=== PATIENT | female | born 1955 | race Caucasian/White ===

== ENCOUNTER 2020-10-23 07:40 | Emergency (ER) | payer OTHER ==
--- OUTSIDE RECORDS SUMMARY | 2020-10-23 07:42 | XMS REPORT | Continuity of Care Document ---
:1955 Author Organization [facility] t Address [address] [place] [address] Care Team Providers Name Role Phone Radiology Attending Clinician Unavailable Problems This patient has no known problems. Allergies, Adverse Reactions, Alerts This patient has no known allergies or adverse reactions. Medications This patient has no known medications. Procedures This patient has no known procedures. Encounters Start End Encounter Admission Attending Care Care Encounter Source Date/Time Date/Time Type Type Clinicians Facility Department ID 2019-12-06 2019-12-06 [facility] Radiology [facility] [id number] 13:42:00 23:59:00 Encounter [place] [id number] [place] [id number] [place] [id number] 800 2019-12-06 2019-12-06 [facility] Radiology [facility] [id number] 13:40:00 13:41:00 Encounter [place] [id number] [place] [id number] [place] [id number] Results This patient has no known results.
[2020-10-23 08:10] LABS: Absolute Lymphocytes (CBC) 1.3 K/uL (0.7-4.9); Basophils % 0.3 % (0-1.3); Lymphocytes % 7.8 % (15.3-44.8); MPV 7.6 fL (7.6-11.3); RBC Red Blood Cell Count 5.43 M/uL (3.86-4.86)
[2020-10-23 08:15] LABS: Protime INR 0.95
[2020-10-23] MEDS ORDERED: MORPHINE 4 MG/ML SYR ONE (08:17)
[2020-10-23] MEDS ORDERED: ONDANSETRON 4 MG/2 ML VIAL ONE (08:18)
[2020-10-23 08:34] LABS: ALT/SGPT 35 U/L (12-78); AST/SGOT 37 U/L (15-37); Albumin 4.1 g/dL (3.4-5.0); Alkaline Phosphatase 57 U/L (45-117); BUN Blood Urea Nitrogen 12 mg/dL (7-18); Bicarbonate 25 mmol/L (21-32); Bilirubin Direct 0.1 mg/dL (0-0.2); Bilirubin Total 0.6 mg/dL (0.2-1.0); Glucose Level 142 mg/dL (74-106); Magnesium 2.2 mg/dL (1.8-2.4); NT PRO-BNP 185 pg/mL (<125); Potassium 3.5 mmol/L (3.5-5.1); Protein, Total 8.3 g/dL (6.4-8.2); Sodium Level 138 mmol/L (136-145); Troponin (Emerg Dept Use Only) < 0.02 ng/mL (0.0-0.045)
--- NOTE | 2020-10-23 09:19 | RAD REPORT ---
EXAM DESCRIPTION: CT - Abdomen Pelvis W Contrast - 10/23/2020 8:51 am CLINICAL HISTORY: ABD PAIN COMPARISON: No comparisons TECHNIQUE: Biphasic, helical CT imaging of the abdomen and pelvis was performed following 100 ml non -ionic IV contrast. No oral contrast given. All CT scans are performed using dose optimization technique as appropriate and may include automated exposure control or mA/KV adjustment according to patient size. FINDINGS: No suspicious findings in the lung bases. The liver, spleen, and pancreas show no suspicious findings. Gallbladder and biliary tree are also wi thout suspicious finding. Symmetric renal function is seen with no hydronephrosis or suspicious renal mass. No pyelonephritis o r acute parenchymal process. No bladder abnormalities. No adrenal abnormalities. Uterus and ovaries s how no suspicious findings. Patient has prominent veins along the left side of the uterus with a larg e but patent left gonadal vein. Tortuous dilated but patent veins are seen between the left kidney an d aorta. No stomach or small bowel abnormality. Moderate stool volume is present in the cecum and ascending co apollo. Several right antral wall thickening is seen in the left-side transverse colon to the splenic fl exure. There is stranding and edema in the adjacent fat. Patient has very minimal diverticulosis in t he sigmoid colon and none seen in the area of the involved colon. Left-side: Has very little stool co ntent. No suspicious finding in the distal rectum or anus. CT sensitivity in the anus and perineum is limited. Appendix is normal. No free air, free fluid or pneumatosis. No other area of inflammatory stranding seen. No bulky lym phadenopathy or mass. Patient has a very small 10 millimeter umbilical hernia. The anterior abdominal wall shows convex bowing extending to near the skin surface as a normal variant. Disc and bone degenerative changes are present. This is most prominent at the thoracolumbar junction region and the L5-S1 level. L5 pars defects are present with grade 1 spondylolisthesis. IMPRESSION: Circumferential wall thickening of a 10 centimeter long segment of the left side transve rse colon. Patient has minimal sigmoid diverticulosis and no diverticulosis in the involved portion of the colon. Finding is most likely a nonspecific colitis. Colon malignancy cannot be excluded. Follow-up colonosc opy after medical management of the acute colon process would be recommended.
--- NOTE | 2020-10-23 10:25 | ER ---
Nurse's Notes [facility] Name: Melisa Daugherty Age: 65 yrs Sex: Female : 1955 Arrival Date: 10/23/2020 Time: 07:43 Bed 6 Private MD: BONITA SHANKAR Diagnosis: Left sided colitis;Gastrointestinal hemorrhage, unspecified;Hemorrhoids Presentation: 10/23 07:55 Chief complaint: Patient states: "At two this morning I was really constipated, and I ss have a hernia. I'm afraid I may have strained too hard because I have blood in my stool and my stomach hurts so bad." Pt c/o pain under umbilicus. Coronavirus screen: Client denies travel out of the [place] in the last 14 days. Ebola Screen: Patient denies exposure to infectious person. Patient denies travel to an Ebola-affected area in the 21 days before illness onset. Initial Sepsis Screen: Does the patient meet any 2 criteria? No. Patient's initial sepsis screen is negative. Does the patient have a suspected source of infection? No. Patient's initial sepsis screen is negative. Risk Assessment: Do you want to hurt yourself or someone else? Patient reports no desire to harm self or others. Onset of symptoms was October 23, 2020. 07:55 Method Of Arrival: Ambulatory ss 07:55 Acuity: MACEY 3 ss Historical: - Allergies: 08:00 Codeine; ss - PMHx: 08:00 High Cholesterol; ss - PSHx: 08:00 Right Mastectomy; knee repair; ss - Immunization history:: Adult Immunizations unknown. - Social history:: Smoking status: Patient denies any tobacco usage or history of. Screenin:55 Abuse screen: Denies threats or abuse. Nutritional screening: No deficits noted. em Tuberculosis screening: No symptoms or risk factors identified. Fall Risk None identified. Assessment: 09:00 Reassessment: Patient appears in no apparent distress at this time. Patient and/or em family updated on plan of care and expected duration. Pain level reassessed. Patient is alert, oriented x 3, equal unlabored respirations, skin warm/dry/pink. 10:00 Reassessment: Patient appears in no apparent distress at this time. Patient and/or em family updated on plan of care and expected duration. Pain level reassessed. Patient is alert, oriented x 3, equal unlabored respirations, skin warm/dry/pink. rates pain 3/10 Patient states feeling better. Vital Signs: 07:55 BP 187 / 122; Pulse 97; Resp 19; Temp 97.0(TE); Pulse Ox 98% on R/A; Weight 77.11 kg; ss Height 5 ft. 2 in. (157.48 cm); Pain 9/10; 08:00 BP 192 / 109; Pulse 90; Resp 18; Pulse Ox 98% on R/A; Pain 8/10; em 09:00 BP 194 / 106; Pulse 89; Resp 16; Pulse Ox 96% on R/A; em 10:11 BP 181 / 98; Pulse 88; Resp 14; Pulse Ox 96% on R/A; Pain 3/10; em 07:55 Body Mass Index 31.09 (77.11 kg, 157.48 cm) ED Course: 07:43 Patient arrived in ED. mr 07:43 BONITA SHANKAR is Private Physician. mr 07:47 Trey Eubanks MD is Attending Physician. tw4 07:49 Jerry Lombardo, RN is Primary Nurse. em 07:55 Patient has correct armband on for positive identification. Placed in gown. Bed in low em position. Call light in reach. Side rails up X2. Pulse ox on. NIBP on. 07:55 Initial lab(s) drawn, by az, sent to lab. Inserted saline lock: 20 gauge in right em forearm, using aseptic technique. Blood collected. 07:57 Triage completed. ss 08:00 Arm band placed on right wrist. 08:52 CT Abd/Pelvis - IV Contrast Only In Process Unspecified. EDMS 09:10 EKG done, by ED staff, reviewed by Trey Eubanks MD. dh3 10:24 BONITA SHANKAR is Referral Physician. tw4 10:26 No provider procedures requiring assistance completed. IV discontinued, intact, ss bleeding controlled, No redness/swelling at site. Pressure dressing applied. Administered Medications: 08:02 Drug: Zofran (Ondansetron) 4 mg Route: IVP; Site: right forearm; em 08:20 Follow up: Response: No adverse reaction em 08:04 Drug: morphine 4 mg Route: IVP; Site: right forearm; em 08:20 Follow up: Response: No adverse reaction; Marked relief of symptoms; Pain is decreased em 09:25 Drug: fentaNYL (PF) 25 mcg Route: IVP; Site: right forearm; em 10:16 Follow up: Response: No adverse reaction; Marked relief of symptoms; Pain is decreased; em RASS: Alert and Calm (0) 10:16 Drug: hydrALAZINE 20 mg Route: IV; Rate: bolus; Site: right forearm; em Outcome: 10:25 Discharge ordered by MD. jewell 10:26 Discharged to home ambulatory. 10:26 Condition: good 10:42 Discharge instructions given to patient, Instructed on discharge instructions, follow ss up and referral plans. medication usage, Demonstrated understanding of instructions, follow-up care, medications, Prescriptions given X 2, Dr. Eubanks will call in pain medication 10:43 Patient left the ED. Signatures: Dispatcher [employer] Kamilah Simms Edgar, RN RN Janki Rocha RN RN Riya [facility] Trey Eubanks MD MD tw4
--- NOTE | 2020-10-23 10:25 | EDPHYS ---
Physician Documentation [facility] Name: Melisa Daugherty Age: 65 yrs Sex: Female : 1955 Arrival Date: 10/23/2020 Time: 07:43 Bed 6 Private MD: BONITA SHANKAR ED Physician Trey Eubanks HPI: 10/23 08:01 This 65 yrs old Female presents to ER via Ambulatory with complaints of tw4 Rectal Bleeding. 08:01 The patient presents to the emergency department with bleeding from the rectum/anus. tw4 Onset: The symptoms/episode began/occurred today. Context: the patient has no known special context relating to the rectal area complaint(s). Modifying factors: The symptoms are alleviated by cool compress, The symptoms are aggravated by bowel movement. Associate signs and symptoms: The patient has no apparent associated signs or symptoms. The patient has not experienced similar symptoms in the past. Historical: - Allergies: 08:00 Codeine; ss - PMHx: 08:00 High Cholesterol; ss - PSHx: 08:00 Right Mastectomy; knee repair; ss - Immunization history:: Adult Immunizations unknown. - Social history:: Smoking status: Patient denies any tobacco usage or history of. ROS: 08:01 Constitutional: Negative for fever, chills, and weight loss, Eyes: Negative for injury, tw4 pain, redness, and discharge, Cardiovascular: Negative for chest pain, palpitations, and edema, Respiratory: Negative for shortness of breath, cough, wheezing, and pleuritic chest pain, Abdomen/GI: Negative for abdominal pain, nausea, vomiting, diarrhea, and constipation, Back: Negative for injury and pain. 08:01 MS/Extremity: Negative for injury and deformity, Skin: Negative for injury, rash, and discoloration. 08:01 Abdomen/GI: Positive for abdominal pain, rectal pain, rectal bleeding, Negative for nausea and vomiting, nausea, vomiting, and diarrhea, nausea, vomiting, diarrhea, constipation, abdominal cramps, abdominal distension, anorexia, dysphagia, hematemesis. Exam: 08:01 Constitutional: This is a well developed, well nourished patient who is awake, alert, tw4 and in no acute distress. Head/Face: Normocephalic, atraumatic. Chest/axilla: Normal chest wall appearance and motion. Nontender with no deformity. No lesions are appreciated. Cardiovascular: Regular rate and rhythm with a normal S1 and S2. No gallops, murmurs, or rubs. Normal PMI, no JVD. No pulse deficits. Respiratory: Lungs have equal breath sounds bilaterally, clear to auscultation and percussion. No rales, rhonchi or wheezes noted. No increased work of breathing, no retractions or nasal flaring. Back: No spinal tenderness. No costovertebral tenderness. Full range of motion. MS/ Extremity: Pulses equal, no cyanosis. Neurovascular intact. Full, normal range of motion. Neuro: Awake and alert, GCS 15, oriented to person, place, time, and situation. Cranial nerves II-XII grossly intact. Motor strength 5/5 in all extremities. Sensory grossly intact. Cerebellar exam normal. Normal gait. 08:01 Abdomen/GI: Inspection: abdomen appears normal, Bowel sounds: normal, Palpation: moderate abdominal tenderness, in the left lower quadrant. Vital Signs: 07:55 BP 187 / 122; Pulse 97; Resp 19; Temp 97.0(TE); Pulse Ox 98% on R/A; Weight 77.11 kg; ss Height 5 ft. 2 in. (157.48 cm); Pain 9/10; 08:00 BP 192 / 109; Pulse 90; Resp 18; Pulse Ox 98% on R/A; Pain 8/10; em 09:00 BP 194 / 106; Pulse 89; Resp 16; Pulse Ox 96% on R/A; em 10:11 BP 181 / 98; Pulse 88; Resp 14; Pulse Ox 96% on R/A; Pain 3/10; em 07:55 Body Mass Index 31.09 (77.11 kg, 157.48 cm) MDM: 07:47 Patient medically screened. tw4 14:22 Differential diagnosis: hemorrhoids. Data reviewed: vital signs, nurses notes. Data tw4 interpreted: Pulse oximetry: Interpretation: normal. Counseling: I had a detailed discussion with the patient and/or guardian regarding: the historical points, exam findings, and any diagnostic results supporting the discharge/admit diagnosis, lab results, radiology results. Special discussion: I discussed with the patient/guardian in detail that at this point there is no indication for admission to the hospital. It is understood, however, that if the symptoms persist or worsen the patient needs to return immediately for re-evaluation. 10/23 07:49 Order name: Basic Metabolic Panel; Complete Time: 08:43 10/23 08:43 Interpretation: Normal except: GLUC 142; GFR 76. 10/23 07:49 Order name: CBC with Diff 10/23 08:43 Interpretation: Normal except: WBC 16.6; RBC 5.43; HGB 16.3; HCT 50.0; LYM% 7.8; DALE% tw4 87.3; NEUT A 14.5. 10/23 07:49 Order name: LFT's; Complete Time: 08:43 10/23 08:43 Interpretation: Normal except: TP 8.3; GLOB 4.2; A/G 1.0. 10/23 07:49 Order name: Magnesium; Complete Time: 08:43 10/23 08:44 Interpretation: Within normal limits: MG 2.2. 10/23 07:49 Order name: NT PRO-BNP; Complete Time: 08:43 10/23 08:43 Interpretation: Normal except: NT PRO-BNP 185. 10/23 07:49 Order name: PT-INR; Complete Time: 08:43 10/23 08:44 Interpretation: Within normal limits: PT 11.2. 10/23 07:49 Order name: Troponin (emerg Dept Use Only); Complete Time: 08:43 10/23 08:44 Interpretation: Within normal limits: TROPED < 0.02. 10/23 07:49 Order name: EKG; Complete Time: 07:50 10/23 08:03 Order name: CT Abd/Pelvis - IV Contrast Only; Complete Time: 09:40 10/23 10:29 Order name: Manual Differential EDMS 10/23 07:49 Order name: Cardiac monitoring; Complete Time: 08:08 10/23 07:49 Order name: EKG - Nurse/Tech; Complete Time: 09:13 10/23 07:49 Order name: IV Saline Lock; Complete Time: 08:08 10/23 07:49 Order name: Labs collected and sent; Complete Time: 08:08 10/23 07:49 Order name: O2 Per Protocol; Complete Time: 08:08 10/23 07:49 Order name: O2 Sat Monitoring; Complete Time: : tw4 EC:22 Rate is 88 beats/min. Rhythm is regular. QRS [place] is Normal. MO interval is normal. QRS tw4 interval is normal. QT interval is normal. No Q waves. T waves are Normal. No ST changes noted. Clinical impression: Normal ECG. Interpreted by me. Reviewed by me. Administered Medications: 08:02 Drug: Zofran (Ondansetron) 4 mg Route: IVP; Site: right forearm; em 08:20 Follow up: Response: No adverse reaction em 08:04 Drug: morphine 4 mg Route: IVP; Site: right forearm; em 08:20 Follow up: Response: No adverse reaction; Marked relief of symptoms; Pain is decreased em 09:25 Drug: fentaNYL (PF) 25 mcg Route: IVP; Site: right forearm; em 10:16 Follow up: Response: No adverse reaction; Marked relief of symptoms; Pain is decreased; em RASS: Alert and Calm (0) 10:16 Drug: hydrALAZINE 20 mg Route: IV; Rate: bolus; Site: right forearm; em Disposition: 10/23/20 10:25 Discharged to Home. Impression: Left sided colitis, Gastrointestinal hemorrhage, unspecified, Hemorrhoids. - Condition is Stable. - Discharge Instructions: Rectal Bleeding, Hemorrhoids, Lvel-wu-Aiju, Colitis. - Prescriptions for Colace 100 mg Oral Tablet - take 1 tablet by ORAL route every 12 hours; 14 tablet. Flagyl 500 mg Oral Tablet - take 1 tablet by ORAL route every 12 hours for 7 days; 14 tablet. - Work release form, Medication Reconciliation Form, Thank You Letter, Antibiotic Education, Prescription Opioid Use form. - Follow up: OBNITA SHANKAR; When: Upon discharge from the Emergency Department; Reason: Recheck today's complaints, Continuance of care, Re-evaluation by your physician. - Problem is new. - Symptoms have improved. Signatures: Dispatcher [employer] Jerry Santiago, RN RN em Janki Rocha RN RN Trey Eubanks MD MD tw4 Corrections: (The following items were deleted from the chart) 10:26 10:25 10/23/2020 10:25 Discharged to Home. Impression: Left sided colitis. Condition is tw4 Stable. Forms are Medication Reconciliation Form, Thank You Letter, Antibiotic Education, Prescription Opioid Use. Follow up: BONITA SHANKAR; When: Upon discharge from the Emergency Department; Reason: Recheck today's complaints, Continuance of care, Re-evaluation by your physician. Problem is new. Symptoms have improved. tw4 10:43 10:26 10/23/2020 10:25 Discharged to Home. Impression: Left sided colitis; ss Gastrointestinal hemorrhage, unspecified; Hemorrhoids. Condition is Stable. Discharge Instructions: Colitis. Forms are Medication Reconciliation Form, Thank You Letter, Antibiotic Education, Prescription Opioid Use. Follow up: BONITA SHANKAR; When: Upon discharge from the Emergency Department; Reason: Recheck today's complaints, Continuance of care, Re-evaluation by your physician. Problem is new. Symptoms have improved. tw4
[2020-10-23] MEDS ORDERED: HYDRALAZINE HCL 20 MG/ML VIAL ONE (10:28)
[2020-10-23 10:29] LABS: Blood Morphology Comment NOT SEEN (NOT SEEN); Platelet Estimate ADEQ
[2020-10-23 10:48] VITALS: TEMP 97
[2020-10-23 10:50] VITALS: O2SAT 96
[2020-10-23 10:51] VITALS: BP 181/98
== END 2020-10-23 10:43 | disposition home or self-care (01) ==
LOC: ER 07:40
DX: K51.50 Left sided colitis without complications (principal); K64.9 Unspecified hemorrhoids; Z88.5 Allergy status to narcotic agent; Z90.11 Acquired absence of right breast and nipple
CPT/HCPCS: 85025; 80048; 36415; 83735; 85610; 80076; 84484; 83880; 74177; 96375; 96374; 99284; Q9967; J0360; J2405; 93005

== ENCOUNTER 2022-03-19 16:52 | Emergency (ER) | payer OTHER ==
--- OUTSIDE RECORDS SUMMARY | 2022-03-19 16:54 | XMS REPORT | Continuity of Care Document ---
:1955 Author Organization [facility] t Address [address] [place] [address] Care Team Providers Name Role Phone Tyrese SHANKAR Primary Care Physician Unavailable Radiology Attending Clinician Unavailable RADIOLOGY Attending Clinician Unavailable EMIL Admitting Clinician Unavailable Payers Payer Name Policy Type Policy Number Effective Date Expiration Date S yovani MEDICARE PART A [id number] 2008 \T\ B 00:00:00 MEDICA[place] [id number] 2014 00:00:00 Problems This patient has no known problems. Allergies, Adverse Reactions, Alerts Allergy Allergy Status Severity Reaction(s) Onset Inactive Treating Comm ents Source Name Type Date Date Clinician [facility] [address] Medications This patient has no known medications. Procedures This patient has no known procedures. Encounters Start End Encounter Admission Attending Care Care Encounter Source Date/Time Date/Time Type Type Clinicians Facility Department ID 2019-12-06 2019-12-06 [facility] Radiology [facility] [id number] 13:42:00 23:59:00 Encounter [place] [id number] [place] [id number] [place] [id number] 2019-12-06 2019-12-06 Outpatient R RADIOLOGY [facility] [id number] [facility] 13:41:03 13:41:00 ity of [facility] 2019-12-06 2019-12-06 [facility] Radiology [facility] [id number] 13:40:00 13:41:00 Encounter [place] [id number] [place] [id number] [place] [id number] 800 2019-12-06 2019-12-06 Outpatient R RADIOLOGY [facility] [id number] [facility] 00:00:00 00:00:00 [facility] Results This patient has no known results.
[2022-03-19 17:46] LABS: Absolute Lymphocytes (CBC) 2.2 K/uL (0.7-4.9); Hematocrit 43.7 % (36.0-45.0); Lymphocytes % 18.5 % (15.3-44.8); MPV 7.7 fL (7.6-11.3); RBC Red Blood Cell Count 4.86 M/uL (3.86-4.86)
[2022-03-19 17:54] LABS: Potassium 3.8 mmol/L (3.5-5.1)
[2022-03-19 18:14] LABS: Urine Blood Trace-intact (Negative); Urine Glucose Negative (Negative); Urine Protein Negative (Negative); Urine Specific Gravity 1.025 (1.005-1.030)
--- NOTE | 2022-03-19 18:46 | RAD REPORT ---
EXAM DESCRIPTION: US - UPPER EXTREMITY VENOUS UNILATE - 03/19/2022 6:40 pm CLINICAL HISTORY: Swelling COMPARISON: EXTREMITY NONVASCULAR dated 06/10/2011 FINDINGS: Color Doppler, grayscale, and spectral analysis was performed. The right internal jugular vein, subclavian vein, axillary vein, basilic vein, cephalic vein, radial vein, and ulnar vein are compressible and demonstrate color flow. . IMPRESSION: Negative for right upper extremity deep venous thrombosis.
--- NOTE | 2022-03-19 18:52 | ER ---
Nurse's Notes [facility] Name: Melisa Daugherty Age: 66 yrs Sex: Female : 1955 Arrival Date: 03/19/2022 Time: 16:53 Bed 14 Private MD: Diagnosis: Cellulitis of right upper limb Presentation: 03/19 17:11 Chief complaint: Patient states: right arm redness that extends to right side of chest aa5 that began 2 days ago. Pt states "I just don't feel good". Coronavirus screen: fever. Ebola Screen: Patient denies travel to an Ebola-affected area in the 21 days before illness onset. Initial Sepsis Screen: Does the patient meet any 2 criteria? No. Patient's initial sepsis screen is negative. Does the patient have a suspected source of infection? Yes:. Risk Assessment: Do you want to hurt yourself or someone else? Patient reports no desire to harm self or others. Onset of symptoms was March 2022. 17:11 Acuity: MACEY 3 aa5 17:11 Method Of Arrival: Ambulatory aa5 Triage Assessment: 19:32 General: Appears in no apparent distress. comfortable, Behavior is calm, cooperative, ld1 appropriate for age. Historical: - Allergies: 17:14 Codeine; aa5 - PMHx: 17:14 High Cholesterol; aa5 17:14 Right arm lymphedema; Breast Cancer 2005; aa5 - PSHx: 17:14 Right Mastectomy; Lymph nodes removed from right arm due to breast cancer; aa5 - Immunization history:: Adult Immunizations unknown. - Social history:: Smoking status: Patient denies any tobacco usage or history of. Screenin:31 Abuse screen: Denies threats or abuse. Denies injuries from another. Nutritional ld1 screening: No deficits noted. Tuberculosis screening: No symptoms or risk factors identified. Fall Risk None identified. Assessment: 19:31 Reassessment: See triage assessmnet. Pain: Denies pain. ld1 Vital Signs: 17:11 BP 149 / 90; Pulse 86; Resp 20 S; Temp 99.9(O); Pulse Ox 99% on R/A; Weight 79.38 kg aa5 (R); Height 5 ft. 2 in. (157.48 cm) (R); 19:31 BP 136 / 88; Pulse 86; Resp 20; Pulse Ox 99% on R/A; ld1 17:11 Body Mass Index 32.01 (79.38 kg, 157.48 cm) aa5 ED Course: 16:53 Patient arrived in ED. rg4 16:55 Viviana Woods [facility]C [facility]. kb 16:55 Betty Maxwell MD is Attending Physician. kb 17:11 Arm band placed on. aa5 17:14 Triage completed. aa5 17:22 First set of blood cultures drawn by me. aa5 17:33 Inserted saline lock: 20 gauge in left forearm, using aseptic technique. Blood aa5 collected. 17:33 Initial lab(s) drawn, by me, sent to lab. Second set of blood cultures drawn by me. aa5 18:41 UPPER EXTREMITY VENOUS UNILATE In Process Unspecified. EDMS 18:51 Bed in low position. Call light in reach. Side rails up X 1. Door closed. Noise mb7 minimized. Warm blanket given. 19:31 Torie Valdes, RN is Primary Nurse. ld1 19:31 No provider procedures requiring assistance completed. IV discontinued, intact, ld1 bleeding controlled, No redness/swelling at site. Administered Medications: 19:31 Drug: KeFLEX (cephalexin) 500 mg Route: PO; ld1 19:31 Drug: Bactrim (trimethoprim-sulfamethoxazole) (160 mg-800 mg (DS) 1 tablet Route: PO; ld1 Medication: 19:31 VIS not applicable for this client. ld1 Outcome: 18:51 Discharge ordered by . kb 19:31 Discharged to home ambulatory. ld1 19:31 Condition: stable 19:31 Discharge instructions given to patient, family, Instructed on discharge instructions, follow up and referral plans. medication usage, Demonstrated understanding of instructions, follow-up care, medications, Prescriptions given X 2. 19:32 Patient left the ED. ld1 Signatures: Dispatcher [employer] EDNE Viviana Woods FNP-C FNP-Ckb Calderon, Audri RN RN Radha Fajardo rg4 Torie Valdes, BLANCA RN ld1 Kamilah Wood mb7
--- NOTE | 2022-03-19 18:52 | EDPHYS ---
Physician Documentation [facility] Name: Melisa Daugherty Age: 66 yrs Sex: Female : 1955 Arrival Date: 03/19/2022 Time: 16:53 Bed 14 Private MD: ED Physician Betty Maxwell HPI: 03/19 18:27 This 66 yrs old Female presents to ER via Ambulatory with complaints of Arm Pain, Body kb Aches. 18:27 The patient has not experienced similar symptoms in the past. The patient has not kb recently seen a physician. 18:27 The patient presents with cellulitis of the anterior aspect of right upper chest and kb right upper arm. Description: erythematous, hot, swollen. Onset: The symptoms/episode began/occurred 2 day(s) ago. Possible cause(s): unknown. Associated signs and symptoms: Pertinent positives: erythema, swelling, Pertinent negatives: discharge, drainage, foreign body sensation, fever, headache, nausea, shortness of breath, vomiting. Modifying factors: the symptoms are alleviated by nothing, the symptoms are aggravated by nothing. Severity of symptoms: At their worst the symptoms were moderate, in the emergency department the symptoms are unchanged. Historical: - Allergies: 17:14 Codeine; aa5 - PMHx: 17:14 High Cholesterol; aa5 17:14 Right arm lymphedema; Breast Cancer 2005; aa5 - PSHx: 17:14 Right Mastectomy; Lymph nodes removed from right arm due to breast cancer; aa5 - Immunization history:: Adult Immunizations unknown. - Social history:: Smoking status: Patient denies any tobacco usage or history of. ROS: 18:16 Cardiovascular: Negative for chest pain, palpitations, and edema. kb 18:16 Constitutional: Positive for body aches, chills, fever. 18:16 Skin: Positive for cellulitis, of the right upper arm. 18:16 All other systems are negative. Exam: 18:26 Constitutional: This is a well developed, well nourished patient who is awake, alert, kb and in no acute distress. Head/Face: Normocephalic, atraumatic. ENT: Moist Mucous membranes Cardiovascular: Regular rate and rhythm with a normal S1 and S2. No gallops, murmurs, or rubs. No pulse deficits. Respiratory: Respirations even and unlabored. No increased work of breathing. Talking in full sentences MS/ Extremity: Pulses equal, no cyanosis. Neurovascular intact. Full, normal range of motion. Neuro: Awake and alert, GCS 15, oriented to person, place, time, and situation. Moves all extremities. Normal gait. Psych: Awake, alert, with orientation to person, place and time. Behavior, mood, and affect are within normal limits. 18:26 Skin: cellulitis, that is moderate, on the anterior aspect of right upper chest and right upper arm. Vital Signs: 17:11 BP 149 / 90; Pulse 86; Resp 20 S; Temp 99.9(O); Pulse Ox 99% on R/A; Weight 79.38 kg aa5 (R); Height 5 ft. 2 in. (157.48 cm) (R); 19:31 BP 136 / 88; Pulse 86; Resp 20; Pulse Ox 99% on R/A; ld1 17:11 Body Mass Index 32.01 (79.38 kg, 157.48 cm) aa5 MDM: 17:15 Patient medically screened. kb 18:17 Data reviewed: vital signs, nurses notes. Data interpreted: Pulse oximetry: on room air kb is 99 %. Interpretation: normal. Counseling: I had a detailed discussion with the patient and/or guardian regarding: the historical points, exam findings, and any diagnostic results supporting the discharge/admit diagnosis, lab results, the need for outpatient follow up, a family practitioner, to return to the emergency department if symptoms worsen or persist or if there are any questions or concerns that arise at home. 18:55 ED course: Discussed return precautions with pt. Verbal understanding received. Pt in kb agreement with plan of care. . 03/19 17:17 Order name: CBC with Diff; Complete Time: 18:01 kb 03/19 17:17 Order name: Basic Metabolic Panel; Complete Time: 18:01 kb 03/19 17:17 Order name: Blood Culture Adult (2) kb 03/19 17:17 Order name: Lactate; Complete Time: 18:01 kb 03/19 18:14 Order name: Urine Dipstick-Ancillary; Complete Time: 18:16 EDMS 03/19 17:17 Order name: IV Start; Complete Time: 17:37 kb 03/19 18:23 Order name: UPPER EXTREMITY VENOUS UNILATE; Complete Time: 18:51 EDMS Administered Medications: 19:31 Drug: KeFLEX (cephalexin) 500 mg Route: PO; ld1 19:31 Drug: Bactrim (trimethoprim-sulfamethoxazole) (160 mg-800 mg (DS) 1 tablet Route: PO; ld1 Disposition: 03/20 08:11 Co-signature as Attending Physician, Betty Maxwell MD I agree with the assessment ma2 and plan of care. Disposition Summary: 03/19/22 18:51 Discharge Ordered Location: Home kb Condition: Stable kb Diagnosis - Cellulitis of right upper limb kb Followup: kb - With: Emergency Department - When: As needed - Reason: Worsening of condition Followup: kb - With: Private Physician - When: 2 - 3 days - Reason: Recheck today's complaints, Continuance of care, Re-evaluation by your physician Discharge Instructions: - Discharge Summary Sheet kb - Cellulitis, Adult, [id number] kb Forms: - Medication Reconciliation Form kb - Thank You Letter kb - Antibiotic Education kb - Prescription Opioid Use kb Prescriptions: - Cephalexin 500 mg Oral Capsule - take 1 capsule by ORAL route every 6 hours for 10 days; 40 capsule; Refills: 0, kb Product Selection Permitted - Bactrim DS 800-160 mg Oral Tablet - take 1 tablet by ORAL route every 12 hours for 10 days; 20 tablet; Refills: 0, kb Product Selection Permitted Signatures: Dispatcher [employer] EDMS Viviana Woods, SENIOR IT ASSISTANT-C SENIOR IT ASSISTANT-Marni Haile, RN RN aa5 Betty Maxwell MD MD ma2 Torie Valdes RN RN ld1 Corrections: (The following items were deleted from the chart) 03/19 18:23 18:18 Extremity Venous Uni Ltd+[id number] ordered. EDMS EDMS
[2022-03-19] MEDS ORDERED: CEPHALEXIN 250 MG CAP ONE ×2 (19:34→19:38)
[2022-03-19] MEDS ORDERED: SMZ./TMP. 800/160 MG TABLET ONE ×2 (19:34→19:38)
[2022-03-19 19:38] VITALS: TEMP 99.9; O2SAT 99
[2022-03-19 19:40] VITALS: BP 136/88
== END 2022-03-19 19:32 | disposition home or self-care (01) ==
LOC: ER 16:52
DX: L03.113 Cellulitis of right upper limb (principal); Z91.011 Allergy to milk products; Z85.3 Personal history of malignant neoplasm of breast
CPT/HCPCS: 36415; 80048; 81003; 83605; 85025; 87040; 93971; 99284

== ENCOUNTER 2022-09-17 10:33 | Emergency (ER) | payer OTHER ==
--- OUTSIDE RECORDS SUMMARY | 2022-09-17 10:36 | XMS REPORT | Continuity of Care Document ---
:1955 Author Organization [facility] t Address [address] [place] [address] Care Team Providers Name Role Phone BONITA SHANKAR Primary Care Physician Unavailable Radiology Attending Clinician Unavailable RADIOLOGY Attending Clinician Unavailable PAULA STEIN Admitting Clinician Unavailable Payers Payer Name Policy Type Policy Number Effective Date Expiration Date S yovani MEDICARE PART A [id number] 2008 \T\ B 00:00:00 MEDICAID OF [place] [id number] 2014 00:00:00 Problems This patient has no known problems. Allergies, Adverse Reactions, Alerts Allergy Allergy Status Severity Reaction(s) Onset Inactive Treating Comm ents Source Name Type Date Date Clinician CODEINE DRUG Active ITCHING [facility] INGREDI 5-10 ity of 00:00: [address] Medications This patient has no known medications. Procedures This patient has no known procedures. Encounters Start End Encounter Admission Attending Care Care Encounter Source Date/Time Date/Time Type Type Clinicians Facility Department ID 2019-12-06 2019-12-06 [facility] Radiology [facility] [id number] 13:42:00 23:59:00 Encounter [place] [id number] [place] [id number] [place] [phone] 800 2019-12-06 2019-12-06 Outpatient R RADIOLOGY [facility] [id number] Univers 13:41:03 13:41:00 ity of [facility] 2019-12-06 2019-12-06 [facility] Radiology [facility] [id number] 13:40:00 13:41:00 Encounter [place] [id number] [place] [id number] [place] [id number] 800 Results This patient has no known results.
--- NOTE | 2022-09-17 11:36 | RAD REPORT ---
EXAM DESCRIPTION: US - UPPER EXTREMITY VENOUS UNILATE - 09/17/2022 11:17 am CLINICAL HISTORY: Right upper extremity swelling COMPARISON: April 2022 FINDINGS: The right internal jugular, subclavian, brachial, axillary, cephalic, basilic, radial and ulnar veins demonstrate phasic signal. The veins are generally compressible. Doppler demonstrates good flow IMPRESSION: No evidence of thrombus involving the right upper extremity
[2022-09-17 12:26] LABS: Absolute Lymphocytes (CBC) 1.2 K/uL (0.7-4.9); Hematocrit 46.9 % (36.0-45.0); Lymphocytes % 9.5 % (15.3-44.8); MCV 91.8 fL (80-100); MPV 7.5 fL (7.6-11.3)
[2022-09-17 12:30] LABS: Protime INR 1.03
[2022-09-17 12:35] LABS: Albumin 3.6 g/dL (3.4-5.0); Bilirubin Total 0.5 mg/dL (0.2-1.0); Potassium 3.3 mmol/L (3.5-5.1); Protein, Total 7.7 g/dL (6.4-8.2)
[2022-09-17] MEDS ORDERED: FENTANYL CITR 100 MCG/2 ML ONE (13:02)
[2022-09-17] MEDS ORDERED: ONDANSETRON 4 MG/2 ML VIAL ONE (13:03)
[2022-09-17] MEDS ORDERED: VANCOMYCIN 1.5 GM in NA CHLORIDE 0.9% 500 ML IVPB ONE (14:00)
[2022-09-17] MEDS ORDERED: ACETAMINOPHEN 325 MG TABLET ONE (14:27)
--- NOTE | 2022-09-17 15:42 | EDPHYS ---
Physician Documentation [facility] Name: Melisa Daugherty Age: 67 yrs Sex: Female : 1955 Arrival Date: 09/17/2022 Time: 10:35 Bed 23 Private MD: BONITA SHANKAR ED Physician Uli Gomez HPI: 09/17 10:58 This 67 yrs old Female presents to ER via Ambulatory with complaints of Arm Problem. jmm 10:58 This is a 67-year-old female with history of breast cancer, hyperlipidemia, right arm jmm lymphedema the presents emerged part with complaints of increased swelling and pain to the right upper extremity along with body aches. Patient states she has had multiple infections in the past.. Historical: - Allergies: 11:43 Codeine; jl7 - Home Meds: 11:43 omeprazole 40 mg Oral cpDR 1 cap once daily [Active]; jl7 - PMHx: 11:43 Breast Cancer 2005; High Cholesterol; Right arm lymphedema; jl7 - PSHx: 11:43 Lymph nodes removed from right arm due to breast cancer; right mastectomy; jl7 - Immunization history:: Client reports receiving the 2nd dose of the Covid vaccine, Flu vaccine is up to date. - Social history:: Smoking status: Patient denies any tobacco usage or history of. ROS: 10:58 Cardiovascular: Negative for chest pain, palpitations, and edema, Respiratory: Negative jmm for shortness of breath, cough, wheezing, and pleuritic chest pain. 10:58 Constitutional: Positive for body aches, chills. 10:58 MS/extremity: Positive for swelling. 10:58 All other systems are negative. Exam: 10:58 Constitutional: This is a well developed, well nourished patient who is awake, alert, jmm and in no acute distress. Head/Face: atraumatic. Eyes: EOMI, no conjunctival erythema appreciated ENT: Moist Mucus Membranes Neck: Trachea midline, Supple Chest/axilla: Normal chest wall appearance and motion. Cardiovascular: Regular rate and rhythm. No edema appreciated Respiratory: Normal respirations, no respiratory distress appreciated Abdomen/GI: Non distended Back: Normal ROM 10:58 Skin: Diffuse erythema noted to the right forearm extending into the right upper arm, diffusely tender to palpation, full radial pulse, full boiler tester strength, neurovascular tact. 10:58 Neuro: Orientation: is normal, Mentation: is normal, Memory: is normal. 10:58 Psych: Behavior/mood is pleasant, cooperative. Vital Signs: 11:41 BP 159 / 98; Pulse 119; Resp 22; Temp 98.6(TE); Pulse Ox 99% on R/A; Weight 77.11 kg; jl7 Height 5 ft. 2 in. (157.48 cm); Pain 6/10; 13:33 BP 148 / 88; Pulse 92; Resp 17; Pulse Ox 95% on R/A; hb 13:49 BP 142 / 83; Pulse 91; Resp 15; Temp 99.8(O); Pulse Ox 97% on R/A; Pain 3/10; hb 15:30 BP 138 / 80; Pulse 89; Resp 15; Temp 98.8; Pulse Ox 100% on R/A; Pain 2/10; hb 11:41 Body Mass Index 31.09 (77.11 kg, 157.48 cm) 7 MDM: 10:58 Patient medically screened. [facility] 15:37 Data reviewed: vital signs, nurses notes. Counseling: I had a detailed discussion with [facility] the patient and/or guardian regarding: the historical points, exam findings, and any diagnostic results supporting the discharge/admit diagnosis, lab results, radiology results, the need for outpatient follow up, to return to the emergency department if symptoms worsen or persist or if there are any questions or concerns that arise at home. 18:37 ED course: Due to the diffuse nature of the cellulitis, I did discuss the patient's [facility] case with Dr. Mariano. I did recommend admission for IV antibiotics. Patient states she is needed IV antibiotics in the past to help alleviate the symptoms. Dr. Galvez evaluated the patient at bedside, states that it is most likely lymphedema and not an infection. Does not agree with admission. But did recommend an IV dose of antibiotics here and to send the patient home with oral antibiotics.. 09/17 10:59 Order name: CBC with Diff; Complete Time: 12:29 [facility] 09/17 10:59 Order name: Lactate w/ 2H reflex if indic.; Complete Time: 12:41 [facility] 09/17 10:59 Order name: CMP; Complete Time: 12:37 [facility] 09/17 10:59 Order name: Blood Culture Adult (2) [facility] 09/17 10:59 Order name: US Extremity Venous Unilateral Ltd [facility] 09/17 11:49 Order name: PT-INR; Complete Time: 12:37 [facility] 09/17 10:59 Order name: Saline Lock; Complete Time: 12:18 [facility] 09/17 11:03 Order name: UPPER EXTREMITY VENOUS UNILATE; Complete Time: 11:38 EDMS Administered Medications: 13:05 Drug: fentaNYL (PF) 50 mcg Route: IVP; Site: left antecubital; hb 14:00 Follow up: Response: No adverse reaction hb 13:05 Drug: Zofran (Ondansetron) 4 mg Route: IVP; Site: left antecubital; hb 14:00 Follow up: Response: No adverse reaction hb 13:59 Drug: Acetaminophen 650 mg Route: PO; hb 15:00 Follow up: Response: No adverse reaction hb 14:40 Drug: vancoMYCIN 1.5 grams Route: IVPB; Rate: calculated rate; Site: left antecubital; hb Disposition: 16:56 Co-signature as Attending Physician, Uli Gomez MD I agree with the assessment and rt plan of care. Disposition Summary: 09/17/22 15:41 Discharge Ordered Location: Home [facility] Condition: Stable [facility] Diagnosis - Cellulitis of right upper limb [facility] - Lymphedema, not elsewhere classified [facility] Followup: [facility] - With: BONITA SHANKAR - When: 2 - 3 days - Reason: Recheck today's complaints, Continuance of care, Re-evaluation by your physician Discharge Instructions: - Discharge Summary Sheet [facility] - Cellulitis, Adult [facility] - Lymphedema [facility] Forms: - Medication Reconciliation Form [facility] - Thank You Letter [facility] - Antibiotic Education [facility] - Prescription Opioid Use [facility] Prescriptions: - Augmentin 875-125 mg Oral Tablet - take 1 tablet by ORAL route every 12 hours for 10 days; 20 tablet; Refills: 0, [facility] Product Selection Permitted - Ultracet 37.5-325 mg Oral Tablet - take 1 tablet by ORAL route every 6 hours - for up to 5 days; do not exceed 8 jmm tablets per day.; 12 tablet; Refills: 0, Product Selection Permitted Signatures: Dispatcher [employer] EDMS Js Pollock PA PA jmm Baxter, Heather, RN Magaly Walden RN RN jl7 Uli Gomez MD MD rt Corrections: (The following items were deleted from the chart) 11:44 11:43 Home Meds: simvastatin 5 mg Oral tab 1 tab once daily; jl7 jl7
--- NOTE | 2022-09-17 15:42 | ER ---
Nurse's Notes [facility] Name: Melisa Daugherty Age: 67 yrs Sex: Female : 1955 Arrival Date: 09/17/2022 Time: 10:35 Bed 23 Private MD: BONITA SHANKAR Diagnosis: Cellulitis of right upper limb;Lymphedema, not elsewhere classified Presentation: 09/17 11:41 Chief complaint: Patient states: Right arm swelling, pain, hot to touch; hx of right jl7 mastectomy with 16 lymph nodes removed. Coronavirus screen: Vaccine status: Patient reports receiving the 2nd dose of the covid vaccine. At this time, the client does not indicate any symptoms associated with coronavirus-19. Ebola Screen: No symptoms or risks identified at this time. Initial Sepsis Screen: Does the patient meet any 2 criteria? RR > 20 per min. HR > 90 bpm. Yes Does the patient have a suspected source of infection? Yes: Other: redness, swelling and heat to right arm If YES to both, name of provider notified: Js BROWNE Risk Assessment: Do you want to hurt yourself or someone else? Patient reports no desire to harm self or others. Onset of symptoms was September 17, 2022. Care prior to arrival: None. 11:41 Method Of Arrival: Ambulatory [facility] 11:41 Acuity: MACEY 2 jl7 Triage Assessment: 11:43 General: Appears in no apparent distress. uncomfortable, Behavior is calm, cooperative, jl7 appropriate for age. Pain: Complains of pain in right arm Pain currently is 6 out of 10 on a pain scale. Historical: - Allergies: 11:43 Codeine; jl7 - Home Meds: 11:43 omeprazole 40 mg Oral cpDR 1 cap once daily [Active]; jl7 - PMHx: 11:43 Breast Cancer 2006; High Cholesterol; Right arm lymphedema; jl7 - PSHx: 11:43 Lymph nodes removed from right arm due to breast cancer; right mastectomy; jl7 - Immunization history:: Client reports receiving the 2nd dose of the Covid vaccine, Flu vaccine is up to date. - Social history:: Smoking status: Patient denies any tobacco usage or history of. Screenin:15 [facility] ED Fall Risk Assessment (Adult) History of falling in the last 3 months, hb including since admission No falls in past 3 months (0 pts) Confusion or Disorientation No (0 pts) Intoxicated or Sedated No (0 pts) Impaired Gait No (0 pts) Mobility Assist Device Used No (0 pt) Altered Elimination No (0 pt) Score/Fall Risk Level 0 - 2 = Low Risk. 12:19 Abuse screen: Denies threats or abuse. Denies injuries from another. Nutritional hb screening: No deficits noted. Tuberculosis screening: No symptoms or risk factors identified. Fall Risk Total Morris Fall Scale indicates No Risk (0-24 pts). Assessment: 12:15 General: Appears in no apparent distress. Behavior is calm, cooperative. Pain: Pain hb currently is 8 out of 10 on a pain scale. Neuro: Level of Consciousness is awake, alert, obeys commands, Oriented to person, place, time, situation. Cardiovascular: Patient's skin is warm and dry. Respiratory: Respiratory effort is even, unlabored, Respiratory pattern is regular, symmetrical. GI: No signs and/or symptoms were reported involving the gastrointestinal system. : No signs and/or symptoms were reported regarding the genitourinary system. EENT: No signs and/or symptoms were reported regarding the EENT system. Derm: Skin is pink, warm \T\ dry. right arm redness and swelling noted. Musculoskeletal: Reports pain in right arm. 13:15 Reassessment: Patient appears in no apparent distress at this time. Patient and/or hb family updated on plan of care and expected duration. Pain level reassessed. Patient is alert, oriented x 3, equal unlabored respirations, skin warm/dry/pink. 14:30 Reassessment: Patient appears in no apparent distress at this time. Patient and/or hb family updated on plan of care and expected duration. Pain level reassessed. Patient is alert, oriented x 3, equal unlabored respirations, skin warm/dry/pink. 16:00 Reassessment: Patient appears in no apparent distress at this time. Patient and/or hb family updated on plan of care and expected duration. Pain level reassessed. Patient is alert, oriented x 3, equal unlabored respirations, skin warm/dry/pink. Vital Signs: 11:41 BP 159 / 98; Pulse 119; Resp 22; Temp 98.6(TE); Pulse Ox 99% on R/A; Weight 77.11 kg; jl7 Height 5 ft. 2 in. (157.48 cm); Pain 6/10; 13:33 BP 148 / 88; Pulse 92; Resp 17; Pulse Ox 95% on R/A; hb 13:49 BP 142 / 83; Pulse 91; Resp 15; Temp 99.8(O); Pulse Ox 97% on R/A; Pain 3/10; hb 15:30 BP 138 / 80; Pulse 89; Resp 15; Temp 98.8; Pulse Ox 100% on R/A; Pain 2/10; hb 11:41 Body Mass Index 31.09 (77.11 kg, 157.48 cm) jl7 ED Course: 10:35 Patient arrived in ED. mr 10:35 BONITA SHANKAR is Private Physician. mr 10:58 [facility] jmm 10:58 Uli Gomez MD is Attending Physician. jmm 11:19 UPPER EXTREMITY VENOUS UNILATE In Process Unspecified. EDMS 11:43 Triage completed. jl7 11:43 Arm band placed on right wrist. Patient placed in an exam room, on a stretcher. jl7 12:01 Samina Javier, RN is Primary Nurse. hb 12:17 Inserted saline lock: 20 gauge in right antecubital area, using aseptic technique. hb Blood collected. 12:18 PT-INR Sent. hb 12:18 CBC with Diff Sent. hb 13:34 Patient has correct armband on for positive identification. hb 15:40 BONITA SHANKAR is Referral Physician. jmm 16:23 No provider procedures requiring assistance completed. IV discontinued, intact, hb bleeding controlled, No redness/swelling at site. Administered Medications: 13:05 Drug: fentaNYL (PF) 50 mcg Route: IVP; Site: left antecubital; hb 14:00 Follow up: Response: No adverse reaction hb 13:05 Drug: Zofran (Ondansetron) 4 mg Route: IVP; Site: left antecubital; hb 14:00 Follow up: Response: No adverse reaction hb 13:59 Drug: Acetaminophen 650 mg Route: PO; hb 15:00 Follow up: Response: No adverse reaction hb 14:40 Drug: vancoMYCIN 1.5 grams Route: IVPB; Rate: calculated rate; Site: left antecubital; hb Medication: 13:34 VIS not applicable for this client. hb Outcome: 15:41 Discharge ordered by . kwasi 16:23 Discharged to home ambulatory. 16:23 Condition: stable 16:23 Discharge instructions given to patient, Instructed on discharge instructions, follow up and referral plans. medication usage, Demonstrated understanding of instructions, follow-up care, medications, Prescriptions given X 2. 16:26 Patient left the ED. Signatures: Dispatcher [employer] EDMS Js Pollock PA PA jmm Rivera, Mary mr Baxter, Heather, RN RN Magaly Rush RN RN jl7 Corrections: (The following items were deleted from the chart) 11:44 11:43 Home Meds: simvastatin 5 mg Oral tab 1 tab once daily; jlPhi jl7
[2022-09-17 17:21] VITALS: BP 138/80; TEMP 98.8; O2SAT 100
== END 2022-09-17 16:26 | disposition home or self-care (01) ==
LOC: ER 10:33
DX: L03.113 Cellulitis of right upper limb (principal); I89.0 Lymphedema, not elsewhere classified; Z88.5 Allergy status to narcotic agent; Z90.11 Acquired absence of right breast and nipple
CPT/HCPCS: 87040 ×2; 85025; 36415; 85610; 83605; 80053; 93971; 96375; 96374; 99284; J3010; J3370; J7040; J2405

== ENCOUNTER 2023-01-30 19:09 | Emergency (ER) | payer OTHER ==
--- OUTSIDE RECORDS SUMMARY | 2023-01-30 19:12 | XMS REPORT | Continuity of Care Document ---
:1955 Author Organization [facility] t Address [address] [facility] [address] [place] [address] Care Team Providers Name Role Phone BONITA SHANKAR Primary Care Physician Unavailable Radiology Attending Clinician Unavailable RADIOLOGY Attending Clinician Unavailable PAULA STEIN Admitting Clinician Unavailable Payers Payer Name Policy Type Policy Number Effective Date Expiration Date S yovani MEDICARE PART A [id number] 2008 \T\ B 00:00:00 MEDICAID OF [place] [id number] 2014 00:00:00 Problems This patient has no known problems. Allergies, Adverse Reactions, Alerts Allergy Allergy Status Severity Reaction(s) Onset Inactive Treating Comm ents Source Name Type Date Date Clinician CODEINE DRUG Active ITCHING [employer] INGREDI 5-10 ity of 00:00: [address] Medications This patient has no known medications. Procedures This patient has no known procedures. Encounters Start End Encounter Admission Attending Care Care Encounter Source Date/Time Date/Time Type Type Clinicians Facility Department ID 2019-12-06 2019-12-06 [facility] Radiology [facility] [id number] 13:42:00 23:59:00 Encounter [place] [id number] [place] [id number] [employer] [id number] 800 2019-12-06 2019-12-06 Outpatient R RADIOLOGY [facility] [id number] [facility] 13:41:03 13:41:00 ity of [facility] 2019-12-06 2019-12-06 [facility] Radiology [facility] [id number] 13:40:00 13:41:00 Encounter [place] [id number] [place] [id number] [employer] [phone] 800 Results This patient has no known results.
[2023-01-30 20:50] LABS: Absolute Lymphocytes (CBC) 1.5 K/uL (0.7-4.9); Hematocrit 41.6 % (36.0-45.0); Lymphocytes % 15.5 % (15.3-44.8); MCV 91.3 fL (80-100); MPV 7.5 fL (7.6-11.3); RBC Red Blood Cell Count 4.55 M/uL (3.86-4.86)
[2023-01-30] MEDS ORDERED: NA CHLORIDE 0.9% 250 ML ONE (21:02)
[2023-01-30] MEDS ORDERED: VANCOMYCIN 1 GM/VIAL ONE (21:02)
--- NOTE | 2023-01-30 21:02 | RAD REPORT ---
EXAM DESCRIPTION: RAD - Chest Single View - 01/30/2023 8:43 pm CLINICAL HISTORY: right arm swelling COMPARISON: Chest Single View dated 04/22/2022; Chest Pa And Lat (2 Views) dated 12/02/2021; CHEST PA A ND LAT 2 VIEW dated 03/10/2012; CHEST PA AND LAT 2 VIEW dated 04/13/2011 FINDINGS: Lines: None. Lungs: No evidence of edema or pneumonia. Pleural: No significant pleural effusions or pneumothorax. Cardiac: The heart size is within normal limits. Mediastinum: Within normal limits. Bones: No acute fractures. Other: None IMPRESSION: No acute cardiopulmonary disease.
[2023-01-30 21:03] LABS: Specific Gravity 1.012 (1.005-1.030); Urine Bilirubin NEGATIVE (Negative); Urine Blood Negative (Negative); Urine Clarity Clear (Clear); Urine Color Colorless (Yellow); Urine Glucose NEGATIVE (Negative); Urine Protein NEGATIVE (Negative); Urine Urobilinogen Normal (Normal); Urine pH 5.5 (5.0-7.0)
[2023-01-30] MEDS ORDERED: NA CHLORIDE 0.9% 1,000 ML ONE (21:08)
--- NOTE | 2023-01-30 21:11 | RAD REPORT ---
EXAM DESCRIPTION: US - UPPER EXTREMITY VENOUS UNILATE - 01/30/2023 9:04 pm CLINICAL HISTORY: Right upper extremity swelling, pain COMPARISON: 09/17/2022 TECHNIQUE: Real-time sonographic evaluation of the right upper extremity venous system was performed . FINDINGS: Normal compressibility, flow augmentation, phasic flow and spontaneous flow is identified in the right upper extremity deep venous system. No intraluminal filling defects seen. IMPRESSION: No DVT in the right upper extremity.
[2023-01-30 21:14] LABS: Albumin 3.6 g/dL (3.4-5.0); Bilirubin Total 0.4 mg/dL (0.2-1.0); Potassium 3.5 mEq/L (3.5-5.1); Protein, Total 7.1 g/dL (6.4-8.2)
[2023-01-30] MEDS ORDERED: KETOROLAC 30 MG/ML INJ ONE (21:55)
--- NOTE | 2023-01-30 22:12 | EDPHYS ---
Physician Documentation [facility] Name: Melisa Daugherty Age: 67 yrs Sex: Female : 1955 Arrival Date: 01/30/2023 Time: 19:09 Bed 18 Private MD: BONITA SHANKAR ED Physician Carlos Arevalo HPI: 01/30 19:35 This 67 yrs old Female presents to ER via Unassigned with complaints of Arm Problem - cp swelling/redness. 19:35 The patient or guardian complains of swelling, tenderness. The complaints affect the cp right arm. Onset: The symptoms/episode began/occurred 2 day(s) ago. Associated signs and symptoms: Pertinent negatives: deformity, injury. 19:35 Treatment prior to arrival includes: no previous treatment. cp 19:35 Patient reports history of right breast mastectomy with right arm lymph nodes removed. cp Patient reports history of cellulitis to right arm in the past. Historical: - Allergies: 19:37 Codeine; ll3 - Home Meds: 19:37 omeprazole 40 mg Oral cpDR 1 cap once daily [Active]; simvastatin 5 mg Oral tab 1 tab ll3 once daily [Active]; - PMHx: 19:37 Breast Cancer 2006; High Cholesterol; Right arm lymphedema; ll3 - PSHx: 19:37 Lymph nodes removed from right arm due to breast cancer; right mastectomy; ll3 - Immunization history:: Client reports receiving the 2nd dose of the Covid vaccine. - Social history:: Smoking status: Patient denies any tobacco usage or history of. ROS: 19:40 Constitutional: Negative for fever, poor PO intake. cp 19:40 Cardiovascular: Negative for chest pain. 19:40 Abdomen/GI: Negative for abdominal pain, vomiting, diarrhea, constipation. 19:40 MS/extremity: Positive for erythema, swelling, tenderness, of the right arm. 19:40 Eyes: Negative for injury, pain, redness, and discharge. cp 19:40 ENT: Negative for drainage from ear(s), ear pain, sore throat, difficulty swallowing, difficulty handling secretions. 19:40 Respiratory: Negative for cough, shortness of breath, wheezing. 19:40 Back: Negative for pain at rest, pain with movement, radiated pain. 19:40 Neuro: Negative for altered mental status, dizziness, headache, numbness, syncope, weakness. 19:40 All other systems are negative. cp Exam: 19:45 Constitutional: The patient appears in no acute distress, alert, awake, cp non-diaphoretic, non-toxic, well developed, well nourished, uncomfortable. 19:45 Head/Face: Normocephalic, atraumatic. cp 19:45 Eyes: Periorbital structures: appear normal, Conjunctiva: normal, no exudate, no cp injection, Sclera: no appreciated abnormality, Lids and lashes: appear normal, bilaterally. 19:45 ENT: External ear(s): are unremarkable, Nose: is normal, Mouth: Lips: moist, Oral cp mucosa: pink and intact, moist, Posterior pharynx: is normal, airway is patent, no erythema, no exudate. 19:45 Neck: ROM/movement: is normal, is supple, without pain, no range of motions limitations, no meningismus, no nuchal rigidity. 19:45 Chest/axilla: Inspection: normal. 19:45 Cardiovascular: Rate: tachycardic, Rhythm: regular, Edema: moderate noted to right arm, JVD: is not appreciated. 19:45 Respiratory: the patient does not display signs of respiratory distress, Respirations: normal, no use of accessory muscles, no retractions, labored breathing, is not present, Breath sounds: are clear throughout, no decreased breath sounds, no stridor, no wheezing. 19:45 Abdomen/GI: Inspection: abdomen appears normal, Palpation: abdomen is soft and non-tender, in all quadrants. 19:45 Back: pain, is absent, ROM is normal. 19:45 Skin: cellulitis, that is mild, irregular, on the right arm. 19:45 Neuro: Orientation: to person, place \T\ time. Mentation: is normal, Motor: moves all fours, strength is normal, Sensation: is normal, Gait: is steady, at a normal pace, without difficulty. 23:06 ECG was reviewed by the Attending Physician. cp Vital Signs: 19:33 BP 137 / 107; Pulse 101; Resp 17; Temp 99.8(O); Pulse Ox 100% on R/A; Weight 80.74 kg ll3 (R); Height 5 ft. 2 in. (R); Pain 6/10; 21:10 BP 157 / 84; Pulse 91; Resp 16; Pulse Ox 99% on R/A; lg3 22:01 BP 155 / 85; Pulse 90; Pulse Ox 100% on R/A; lg3 23:00 BP 167 / 86; Pulse 92; Resp 17 S; Temp 98.7(O); Pulse Ox 100% on R/A; lg3 19:33 Body Mass Index 32.56 (80.74 kg, 157.48 cm) ll3 19:33 Pain Scale: Adult ll3 MDM: 19:40 Patient medically screened. cp 20:00 Differential diagnosis: DVT, CHF, cellulitis, abscess, sepsis. cp 21:02 ED course: US tech reports exam negative for DVT of right arm. cp 22:10 Data reviewed: vital signs, nurses notes, lab test result(s), EKG, radiologic studies, cp plain films, ultrasound. 22:10 Consideration of Admission/Observation Escalation of care including cp admission/observation considered. I considered the following discharge prescriptions or medication management in the emergency department Medications were administered in the Emergency Department. See MAR. Independent interpretation of the following test(s) in the Emergency Department EKG: See my EKG interpretation above X-Ray: My interpretation is chest image negative for infiltrates. Care significantly affected by the following chronic conditions: right arm lymphedema. Counseling: I had a detailed discussion with the patient and/or guardian regarding: the historical points, exam findings, and any diagnostic results supporting the discharge/admit diagnosis, lab results, radiology results, the need for outpatient follow up, a family practitioner, to return to the emergency department if symptoms worsen or persist or if there are any questions or concerns that arise at home. Response to treatment: the patient's symptoms have markedly improved after treatment, and as a result, I will discharge patient. 01/30 19:39 Order name: Blood Culture Adult (2) cp 01/30 19:39 Order name: CBC with Diff; Complete Time: 20:54 cp 01/30 20:54 Interpretation: Normal except: MPV 7.5; DALE% 76.2. cp 01/30 19:39 Order name: CMP; Complete Time: 21:20 cp 01/30 21:20 Interpretation: Normal except: GFR 78; AST 39; A/G 1.0. cp 01/30 19:39 Order name: Lactate w/ 2H reflex if indic.; Complete Time: 21:20 cp 01/30 21:20 Interpretation: LAC 1.5; Reviewed. cp 01/30 19:39 Order name: Protime (+inr); Complete Time: 21:20 cp 01/30 19:39 Order name: Ptt, Activated; Complete Time: 21:20 cp 01/30 19:39 Order name: Urinalysis w/ reflexes; Complete Time: 21:20 cp 01/30 19:39 Order name: Chest Single View XRAY; Complete Time: 21:20 cp 01/30 21:06 Order name: UPPER EXTREMITY VENOUS UNILATE; Complete Time: 21:20 EDMS 01/30 21:21 Interpretation: Report reviewed. cp 01/30 19:39 Order name: EKG; Complete Time: 19:40 cp 01/30 19:39 Order name: Accucheck; Complete Time: 20:47 cp 01/30 19:39 Order name: Cardiac monitoring; Complete Time: 22:19 cp 01/30 19:39 Order name: EKG - Nurse/Tech; Complete Time: 23:02 cp 01/30 19:39 Order name: IV Saline Lock - Large Bore; Complete Time: 20:47 cp 01/30 19:39 Order name: Labs collected and sent; Complete Time: 20:47 cp 01/30 19:39 Order name: O2 Per Protocol; Complete Time: 20:47 cp 01/30 19:39 Order name: O2 Sat Monitoring; Complete Time: 20:47 cp 01/30 19:39 Order name: Vital Signs; Complete Time: 22:06 cp EC:06 Rate is 89 beats/min. Rhythm is regular. AR interval is normal. QRS interval is normal. cp QT interval is normal. T waves are Inverted in lead aVR. Interpreted by me. Reviewed by me. Administered Medications: 23:01 Discontinued: NS 0.9% IV 500 ml IV at 100 ml/hr continuous lg3 20:59 Drug: vancoMYCIN IVPB 1 grams Route: IVPB; Infused Over: 2 hrs; Site: left antecubital; lg3 23:01 Follow up: Response: No adverse reaction; IV Status: Completed infusion; IV Intake: lg3 250ml 21:03 Drug: NS 0.9% IV 500 ml Route: IV; Rate: bolus; Site: left antecubital; lg3 21:58 Follow up: Response: No adverse reaction; IV Status: Completed infusion; IV Intake: lg3 500ml 21:03 Drug: NS 0.9% IV 500 ml Route: IV; Rate: 100 ml/hr; Site: left antecubital; lg3 23:01 Follow up: IV Status: Completed infusion; IV Intake: 200ml lg3 21:50 Drug: Ketorolac IVP 15 mg Route: IVP; Site: left antecubital; lg3 23:01 Follow up: Response: No adverse reaction; Marked relief of symptoms; Pain is decreased lg3 22:40 Drug: Doxycycline PO 100 mg Route: PO; lg3 23:01 Follow up: Response: No adverse reaction lg3 22:40 Drug: Trimethoprim-Sulfamethoxazole PO (160 mg-800 mg (DS) 1 tablet Route: PO; lg3 23:01 Follow up: Response: No adverse reaction lg3 Disposition: 01/31 06:56 Co-signature as Attending Physician, Carlos Arevalo MD I agree with the assessment sp4 and plan of care. I reviewed the patient's care provided by the Advanced Practice Provider and agree with the diagnosis and treatment plan. Disposition Summary: 01/30/23 22:11 Discharge Ordered Location: Home cp Problem: new cp Symptoms: have improved cp Condition: Stable cp Diagnosis - Cellulitis of right upper limb cp Followup: cp - With: Private Physician - When: 48 Hours - Reason: Recheck today's complaints Discharge Instructions: - Discharge Summary Sheet cp - Cellulitis, Adult cp Forms: - Medication Reconciliation Form cp - Thank You Letter cp - Antibiotic Education cp - Prescription Opioid Use cp Prescriptions: - Doxycycline Hyclate 100 mg Oral Tablet - take 1 tablet by ORAL route every 12 hours; 20 tablet; Refills: 0, Product cp Selection Permitted - Diclofenac Sodium 75 mg Oral tablet,delayed release (DR/EC) - take 1 tablet by ORAL route 2 times per day; 20 tablet; Refills: 0, Product cp Selection Permitted - Bactrim DS 800-160 mg Oral Tablet - take 1 tablet by ORAL route every 12 hours for 10 days; 20 tablet; Refills: 0, cp Product Selection Permitted Signatures: Dispatcher [facility] Hospital[facility]umberto Keyes PA PA cp Gibson, Lacie, RN RN lg3 Mat Donis RN RN 3 Carlos Arevalo MD MD sp4 Corrections: (The following items were deleted from the chart) 01/30 21:06 19:40 Extremity Venous Uni [id number] ordered. EDMS EDMS
--- NOTE | 2023-01-30 22:12 | ER ---
Nurse's Notes [facility] Name: Melisa Daugherty Age: 67 yrs Sex: Female : 1955 Arrival Date: 01/30/2023 Time: 19:09 Bed 18 Private MD: BONITA SHANKAR Diagnosis: Cellulitis of right upper limb Presentation: 01/30 19:33 Chief complaint: Patient states: States "I had lymph noes removed", c/o swelling and ll3 pain to right upper arm since yesterday. Coronavirus screen: Vaccine status: Patient reports receiving the 2nd dose of the covid vaccine. At this time, the client does not indicate any symptoms associated with coronavirus-19. Ebola Screen: No symptoms or risks identified at this time. Initial Sepsis Screen: Does the patient meet any 2 criteria? HR > 90 bpm. No. Patient's initial sepsis screen is negative. Does the patient have a suspected source of infection? No. Patient's initial sepsis screen is negative. Risk Assessment: Do you want to hurt yourself or someone else? Patient reports no desire to harm self or others. Onset of symptoms was January 29, 2023. 19:33 Method Of Arrival: Ambulatory ll3 19:33 Acuity: MACEY 3 ll3 Historical: - Allergies: 19:37 Codeine; ll3 - Home Meds: 19:37 omeprazole 40 mg Oral cpDR 1 cap once daily [Active]; simvastatin 5 mg Oral tab 1 tab ll3 once daily [Active]; - PMHx: 19:37 Breast Cancer 2005; High Cholesterol; Right arm lymphedema; ll3 - PSHx: 19:37 Lymph nodes removed from right arm due to breast cancer; right mastectomy; ll3 - Immunization history:: Client reports receiving the 2nd dose of the Covid vaccine. - Social history:: Smoking status: Patient denies any tobacco usage or history of. Screenin:11 [facility] ED Fall Risk Assessment (Adult) History of falling in the last 3 months, lg3 including since admission No falls in past 3 months (0 pts). Abuse screen: Denies threats or abuse. Denies injuries from another. Nutritional screening: No deficits noted. Tuberculosis screening: No symptoms or risk factors identified. Assessment: 21:11 General: Appears in no apparent distress. uncomfortable, Behavior is calm, cooperative. lg3 Pain: Complains of pain in right arm, right shoulder. Neuro: No deficits noted. Espinal Agitation-Sedation Scale (RASS): 0 - Alert and Calm Level of Consciousness is awake, alert, obeys commands, Oriented to person, place, time, situation. Cardiovascular: No deficits noted. Denies chest pain, shortness of breath, Capillary refill < 3 seconds Clubbing of nail beds is absent JVD is absent Patient's skin is warm and dry. Respiratory: No deficits noted. Airway is patent Respiratory effort is even, unlabored, Respiratory pattern is regular, symmetrical. GI: No deficits noted. No signs and/or symptoms were reported involving the gastrointestinal system. Abdomen is round non-distended. : No deficits noted. No signs and/or symptoms were reported regarding the genitourinary system. EENT: No deficits noted. No signs and/or symptoms were reported regarding the EENT system. Derm: reddening and swelling noted to right arm and shoulder. Musculoskeletal: No deficits noted. Circulation, motion, and sensation intact. Range of motion: intact in all extremities. 21:52 Reassessment: Patient appears in no apparent distress at this time. No changes from lg3 previously documented assessment. Patient and/or family updated on plan of care and expected duration. Pain level reassessed. Patient is alert, oriented x 3, equal unlabored respirations, skin warm/dry/pink. 22:29 General: discharge upon completion of IV antibiotics. lg3 22:59 Reassessment: Patient appears in no apparent distress at this time. No changes from lg3 previously documented assessment. Patient and/or family updated on plan of care and expected duration. Pain level reassessed. Patient is alert, oriented x 3, equal unlabored respirations, skin warm/dry/pink. Patient states feeling better. Patient states symptoms have improved. Vital Signs: 19:33 BP 137 / 107; Pulse 101; Resp 17; Temp 99.8(O); Pulse Ox 100% on R/A; Weight 80.74 kg ll3 (R); Height 5 ft. 2 in. (R); Pain 6/10; 21:10 BP 157 / 84; Pulse 91; Resp 16; Pulse Ox 99% on R/A; lg3 22:01 BP 155 / 85; Pulse 90; Pulse Ox 100% on R/A; lg3 23:00 BP 167 / 86; Pulse 92; Resp 17 S; Temp 98.7(O); Pulse Ox 100% on R/A; lg3 19:33 Body Mass Index 32.56 (80.74 kg, 157.48 cm) ll3 19:33 Pain Scale: Adult ll3 ED Course: 19:11 Patient arrived in ED. am2 19:11 BONITA SHANKAR is Private Physician. am2 19:12 Humberto Forrester PA is PHCP. cp 19:12 Bola Torres MD is Attending Physician. cp 19:36 Triage completed. ll3 19:37 Arm band placed on Patient placed in an exam room, on a stretcher, on pulse oximetry. ll3 19:40 Carlos Arevalo MD is Attending Physician. cp 20:40 Inserted saline lock: 20 gauge in left antecubital area, using aseptic technique. Blood lg3 collected. 20:45 Chest Single View XRAY In Process Unspecified. EDMS 20:47 Ptt, Activated Sent. lg3 20:47 Protime (+inr) Sent. lg3 20:47 Lactate w/ 2H reflex if indic. Sent. lg3 20:47 CMP Sent. lg3 20:47 CBC with Diff Sent. lg3 20:47 Blood Culture Adult (2) Sent. lg3 20:53 Blood Culture Adult (2) Sent. lg3 20:53 CMP Sent. lg3 20:53 Lactate w/ 2H reflex if indic. Sent. lg3 20:53 Urinalysis w/ reflexes Sent. lg3 21:06 UPPER EXTREMITY VENOUS UNILATE In Process Unspecified. EDMS 21:11 Patient has correct armband on for positive identification. Placed in gown. Bed in low lg3 position. Call light in reach. Side rails up X 1. Client placed on continuous cardiac and pulse oximetry monitoring. NIBP monitoring applied. multicultural internship on. Door closed. Noise minimized. Warm blanket given. 21:47 Leandra Porter, RN is Primary Nurse. lg3 22:59 No provider procedures requiring assistance completed. IV discontinued, intact, lg3 bleeding controlled, No redness/swelling at site. Pressure dressing applied. Administered Medications: 23:01 Discontinued: NS 0.9% IV 500 ml IV at 100 ml/hr continuous lg3 20:59 Drug: vancoMYCIN IVPB 1 grams Route: IVPB; Infused Over: 2 hrs; Site: left antecubital; lg3 23:01 Follow up: Response: No adverse reaction; IV Status: Completed infusion; IV Intake: lg3 250ml 21:03 Drug: NS 0.9% IV 500 ml Route: IV; Rate: bolus; Site: left antecubital; lg3 21:58 Follow up: Response: No adverse reaction; IV Status: Completed infusion; IV Intake: lg3 500ml 21:03 Drug: NS 0.9% IV 500 ml Route: IV; Rate: 100 ml/hr; Site: left antecubital; lg3 23:01 Follow up: IV Status: Completed infusion; IV Intake: 200ml lg3 21:50 Drug: Ketorolac IVP 15 mg Route: IVP; Site: left antecubital; lg3 23:01 Follow up: Response: No adverse reaction; Marked relief of symptoms; Pain is decreased lg3 22:40 Drug: Doxycycline PO 100 mg Route: PO; lg3 23:01 Follow up: Response: No adverse reaction lg3 22:40 Drug: Trimethoprim-Sulfamethoxazole PO (160 mg-800 mg (DS) 1 tablet Route: PO; lg3 23:01 Follow up: Response: No adverse reaction lg3 Medication: 23:00 VIS not applicable for this client. lg3 Intake: 21:58 IV: 500ml; Total: 500ml. lg3 23:01 IV: 200ml; Total: 700ml. lg3 23:01 IV: 250ml; Total: 950ml. lg3 Outcome: 22:11 Discharge ordered by . cp 22:59 Discharged to home ambulatory. lg3 22:59 Condition: stable 22:59 Discharge instructions given to patient, Instructed on discharge instructions, follow up and referral plans. medication usage, Demonstrated understanding of instructions, follow-up care, medications, Prescriptions given X 3. 23:10 Patient left the ED. lg3 Signatures: Dispatcher [employer] EDMS Humberto Forrester PA PA cp Moreno, Amanda am2 Leandra Porter RN RN lg3 Mat Donis RN RN ll3 Corrections: (The following items were deleted from the chart) 19:38 19:33 Pulse 101bpm; Resp 17bpm; Pulse Ox 100% RA; Temp 99.8F Oral; 80.74 kg Reported; ll3 Height 5 ft. 2 in. Reported; BMI: 32.5; Pain 6/10, Adult; ll3
[2023-01-30] MEDS ORDERED: SMZ./TMP. 800/160 MG TABLET ONE (22:20)
[2023-01-30] MEDS ORDERED: DOXYCYCLINE 100 MG CAP PO ONE (22:20)
[2023-01-30 23:18] VITALS: O2SAT 100
[2023-01-30 23:20] VITALS: BP 167/86; TEMP 98.7
--- NOTE | 2023-01-31 12:38 | EKG ---
Test Date: 2023-01-30 Test Time: 23:01:01 Box Stamper: RAMOS MEASUREMENT RESULTS: Intervals: Rate: 89 WV: 154 QRSD: 74 QT: 374 QTc: 455 [place]: P: 51 WV: 154 QRS: 13 T: 31 INTERPRETIVE STATEMENTS: Normal sinus rhythm Normal ECG Compared to ECG 04/22/2022 14:12:05 No significant changes Electronically Signed On 01-31-23 12:37:04 CDT by Bladimir Deal
== END 2023-01-30 23:10 | disposition home or self-care (01) ==
LOC: ER 19:09
DX: L03.113 Cellulitis of right upper limb (principal); Z88.5 Allergy status to narcotic agent; Z85.3 Personal history of malignant neoplasm of breast; Z90.11 Acquired absence of right breast and nipple
CPT/HCPCS: 96365; 93005; 87040 ×2; 85025; 36415; 85610; 83605; 85730; 81003; 80053; 71045; 93971; 96375; 99285; 96366; J7050; J7040

== ENCOUNTER 2023-07-19 12:38 | Observation (INO) | payer OTHER ==
--- OUTSIDE RECORDS SUMMARY | 2023-07-19 12:40 | XMS REPORT | Continuity of Care Document ---
:1955 Author Organization [facility] t Address [address] [place] [address] Care Team Providers Name Role Phone BONITA SHANKAR Primary Care Physician Unavailable Radiology Attending Clinician Unavailable RADIOLOGY Attending Clinician Unavailable PAULA STEIN Admitting Clinician Unavailable Payers Payer Name Policy Type Policy Number Effective Date Expiration Date [facility] A [id number] 2008 \T\ B 00:00:00 MEDICAID [place] [id number] 2014 00:00:00 Problems This patient has no known problems. Allergies, Adverse Reactions, Alerts Allergy Allergy Status Severity Reaction(s) Onset Inactive Treating Comm ents Source Name Type Date Date Clinician CODEINE DRUG Active [facility] [employer] INGREDI 5-10 ity of 00:00: [address] Medications This patient has no known medications. Procedures This patient has no known procedures. Encounters Start End Encounter Admission Attending Care Care Encounter Source Date/Time Date/Time Type Type Clinicians Facility Department ID 2019-12-06 2019-12-06 [facility] Radiology [facility] [id number] 13:42:00 23:59:[address] [place] [id number] [place] [id number] 2019-12-06 2019-12-06 Outpatient R RADIOLOGY [facility] [id number] [facility] 13:41:03 13:41:00 ity of [facility] 2019-12-06 2019-12-06 [facility] Radiology [facility] [id number] 13:40:00 13:41:[address] [place] [id number] [id number] [place] [id number] Results This patient has no known results.
[2023-07-19 13:29] LABS: Absolute Lymphocytes (CBC) 1.3 K/uL (0.7-4.9); Lymphocytes % 14.2 % (15.3-44.8); MCV 92.4 fL (80-100); MPV 7.4 fL (7.6-11.3); Platelets 210 thou/uL (152-406); RBC Red Blood Cell Count 4.44 M/uL (3.86-4.86)
[2023-07-19 13:55] LABS: Albumin 3.3 g/dL (3.4-5.0); Bilirubin Total 0.6 mg/dL (0.2-1.0); Potassium 3.4 mEq/L (3.5-5.1); Protein, Total 7.1 g/dL (6.4-8.2)
[2023-07-19 14:07] LABS: Protime INR 1.11
--- NOTE | 2023-07-19 14:15 | ER ---
Nurse's Notes [facility] Name: Melisa Daugherty Age: 68 yrs Sex: Female : 1955 Arrival Date: 07/19/2023 Time: 12:38 Bed IW10 Private MD: Diagnosis: Cellulitis of right upper limb;Lymphedema Right upper extremitis;Chills (without fever) Presentation: 07/19 12:47 Chief complaint: Patient states: she woke up this morning at approx 0230 with pain and ap3 swelling to her right upper arm. Coronavirus screen: At this time, the client does not indicate any symptoms associated with coronavirus-19. Ebola Screen: No symptoms or risks identified at this time. Initial Sepsis Screen: Does the patient meet any 2 criteria? No. Patient's initial sepsis screen is negative. Does the patient have a suspected source of infection? Yes: Skin breakdown/wound. Risk Assessment: Do you want to hurt yourself or someone else? Patient reports no desire to harm self or others. Onset of symptoms was July 19, 2023. 12:47 Method Of Arrival: Ambulatory ap3 12:47 Acuity: MACEY 3 ap3 Triage Assessment: 12:49 General: Appears in no apparent distress. Behavior is calm, cooperative, appropriate ap3 for age. Pain: Complains of pain in right arm. Neuro: Level of Consciousness is awake, alert, obeys commands, Oriented to person, place, time, situation. Cardiovascular: Patient's skin is warm and dry. Respiratory: Airway is patent Respiratory effort is even, unlabored, Respiratory pattern is regular, symmetrical. Derm: Skin is. Historical: - Allergies: 12:48 Codeine; ap3 - PMHx: 12:48 Breast Cancer 2005; High Cholesterol; Right arm lymphedema; ap3 - PSHx: 12:48 Lymph nodes removed from right arm due to breast cancer; right mastectomy; ap3 - Immunization history:: Client reports receiving the 2nd dose of the Covid vaccine. - Social history:: Smoking status: Patient denies any tobacco usage or history of. Screenin:49 [facility] ED Fall Risk Assessment (Adult) History of falling in the last 3 months, ap3 including since admission No falls in past 3 months (0 pts). Abuse screen: Denies threats or abuse. Nutritional screening: No deficits noted. Tuberculosis screening: No symptoms or risk factors identified. Assessment: 14:31 General: Appears in no apparent distress. Pain: Complains of pain in right arm. Neuro: ko1 No deficits noted. Cardiovascular: No deficits noted. Respiratory: No deficits noted. GI: No deficits noted. : No deficits noted. EENT: No deficits noted. Derm: No deficits noted. Musculoskeletal: Reports pain in right arm. 19:05 Reassessment: ASSUMED CARE OF PT. PT REMOVED IV ON HER OWN STATES SHE REFUSED ADMISSION jj7 AND WANTS TO LEAVE. PRESSURE DRESSING APPLIED TO SITE TO STOP BLEEDING. PT WAITING IN BED FOR AMA PAPERS. Vital Signs: 12:47 BP 149 / 73; Pulse 88; Resp 18; Pulse Ox 98% ; Weight 79.38 kg; Pain 5/10; ap3 12:52 Temp 98.3(O); ap3 13:25 BP 124 / 67; Pulse 77; Resp 16; Pulse Ox 98% ; ko1 16:35 BP 112 / 54; Pulse 79; Resp 16; Pulse Ox 99% ; ko1 12:47 Pain Scale: Adult ap3 ED Course: 12:40 Patient arrived in ED. mr 12:42 Leobardo Mancini DO is Attending Physician. ms3 12:48 Triage completed. ap3 12:49 Arm band placed on left wrist. ap3 12:51 Lili Lopez, RN is Primary Nurse. ko1 13:15 First set of blood cultures drawn by me, Second set of blood cultures drawn by me. ds4 13:25 Patient has correct armband on for positive identification. Placed in gown. Bed in low ko1 position. Call light in reach. Side rails up X2. Provided Education on: na. Client placed on continuous cardiac and pulse oximetry monitoring. NIBP monitoring applied. youth advocate on. Door closed. Noise minimized. Warm blanket given. 13:25 Blood Culture Adult (2) Sent. ko1 13:25 CBC with Diff Sent. ko1 13:25 CMP Sent. ko1 13:25 Lactate w/ 2H reflex if indic. Sent. ko1 13:25 Protime (+inr) Sent. ko1 13:25 Ptt, Activated Sent. ko1 13:30 Inserted saline lock: 22 gauge in left forearm, using aseptic technique. Blood ds4 collected. 14:13 Betty Whitfield MD is Hospitalizing Provider. ms3 16:35 No provider procedures requiring assistance completed. ko1 Administered Medications: 14:20 Drug: vancoMYCIN IVPB 1 grams IVPB once over 2 hrs Route: IVPB; Infused Over: 2 hrs; ko1 Site: left antecubital; Medication: 16:35 VIS not applicable for this client. ko1 Outcome: 14:14 Decision to Hospitalize by Provider. ms3 19:42 AMA AMA form signed jj7 19:42 Condition: stable 22:38 Patient left the ED. jj7 Signatures: Kamilah Acosta, Reg Reg Fan Lopez ds4 Amanda Astudillo RN RN ap3 Leobardo Mancini, DO ms3 Lili Lopez RN RN ko1 Braydon Matias RN RN jj7
--- NOTE | 2023-07-19 14:15 | EDPHYS ---
Physician Documentation [facility] Name: Melisa Daugherty Age: 68 yrs Sex: Female : 1955 Arrival Date: 07/19/2023 Time: 12:38 Bed IW10 Private MD: ED Physician Leobardo Mancini HPI: 07/19 14:11 This 68 yrs old Female presents to ER via Ambulatory with complaints of Arm Swelling. ms3 14:11 68-year-old female with past medical history of right upper extremity lymphedema, ms3 hyperlipidemia, breast cancer presents for right arm swelling, chills, erythema of right upper extremity onto her chest that began at 230 this morning. Patient states her discomfort is a 4/10. Patient states she has prior history of cellulitis of the right upper extremity. Patient denies any alleviating or inciting factors. Historical: - Allergies: 12:48 Codeine; ap3 - PMHx: 12:48 Breast Cancer 2005; High Cholesterol; Right arm lymphedema; ap3 - PSHx: 12:48 Lymph nodes removed from right arm due to breast cancer; right mastectomy; ap3 - Immunization history:: Client reports receiving the 2nd dose of the Covid vaccine. - Social history:: Smoking status: Patient denies any tobacco usage or history of. ROS: 14:11 Neck: Negative for injury, pain, and swelling, Cardiovascular: Negative for chest pain, ms3 and palpitations. 14:11 Respiratory: Negative for shortness of breath, cough, wheezing, and pleuritic chest pain, Abdomen/GI: Negative for abdominal pain, nausea, vomiting, diarrhea, and constipation, MS/Extremity: Negative for injury and deformity, 14:11 Constitutional: Positive for chills, 14:11 Skin: Positive for cellulitis, 14:11 All other systems are negative, Exam: 14:11 Constitutional: This is a well developed, well nourished patient who is awake, alert, ms3 and in no acute distress. Head/Face: Normocephalic, atraumatic. Chest/axilla: Normal chest wall appearance and motion. Nontender with no deformity. Cardiovascular: Regular rate and rhythm with a normal S1 and S2. No gallops, murmurs, or rubs. Normal PMI, no JVD. No pulse deficits. Respiratory: Lungs have equal breath sounds bilaterally, clear to auscultation and percussion. No rales, rhonchi or wheezes noted. No increased work of breathing, no retractions or nasal flaring. Abdomen/GI: Soft, non-tender, with normal bowel sounds. No distension or tympany. No guarding or rebound. No evidence of tenderness throughout. MS/ Extremity: Pulses equal, no cyanosis. Neurovascular intact. Full, normal range of motion. 14:11 Skin: cellulitis, that is severe, confluent, well demarcated, on the right arm, 15:32 ECG was reviewed by the Attending Physician. ms3 Vital Signs: 12:47 BP 149 / 73; Pulse 88; Resp 18; Pulse Ox 98% ; Weight 79.38 kg; Pain 5/10; ap3 12:52 Temp 98.3(O); ap3 13:25 BP 124 / 67; Pulse 77; Resp 16; Pulse Ox 98% ; ko1 16:35 BP 112 / 54; Pulse 79; Resp 16; Pulse Ox 99% ; ko1 12:47 Pain Scale: Adult ap3 MDM: 12:51 Patient medically screened. ms3 14:11 Differential diagnosis: Lymphedema for cellulitis. ms3 14:14 Data reviewed: vital signs, nurses notes, lab test result(s), and as a result, I will ms3 admit patient. Consideration of Admission/Observation Patient was admitted/placed on observation. Management of patient was discussed with the following: Hospitalist: Betsy Maguire on behalf of Dr Whitfield. I considered the following discharge prescriptions or medication management in the emergency department Medications were administered in the Emergency Department. See MAR. Counseling: I had a detailed discussion with the patient and/or guardian regarding the historical points, exam findings, and any diagnostic results supporting the discharge/admit diagnosis, lab results, the need for outpatient follow up, to return to the emergency department if symptoms worsen or persist or if there are any questions or concerns that arise at home. ED course: Discussed physical exam findings and labs with patient. Patient in agreement with admission for IV antibiotics. All questions were answered. Patient remains in stable condition in the emergency department. 07/19 12:51 Order name: Blood Culture Adult (2) ms3 07/19 12:51 Order name: CBC with Diff; Complete Time: 14:01 ms3 07/19 12:51 Order name: CMP; Complete Time: 14:01 ms3 07/19 12:51 Order name: Lactate w/ 2H reflex if indic.; Complete Time: 14:01 ms3 07/19 12:51 Order name: Protime (+inr); Complete Time: 14:09 ms3 07/19 12:51 Order name: Ptt, Activated; Complete Time: 14:09 ms3 07/19 15:59 Order name: Basic Metabolic Panel EDMS 07/19 15:59 Order name: Basic Metabolic Panel EDMS 07/19 15:59 Order name: CBC with Automated Diff EDMS 07/19 15:59 Order name: CBC with Automated Diff EDMS 07/19 15:59 Order name: Procalcitonin EDMS 07/19 15:59 Order name: Procalcitonin EDMS 07/19 12:51 Order name: EKG; Complete Time: 12:52 ms3 07/19 15:59 Order name: CONS Physician Consult EDMS 07/19 12:51 Order name: Accucheck; Complete Time: 14:13 ms3 07/19 12:51 Order name: Cardiac monitoring; Complete Time: 12:57 ms3 07/19 12:51 Order name: EKG - Nurse/Tech; Complete Time: 13:25 ms3 07/19 12:51 Order name: IV Saline Lock - Large Bore; Complete Time: 13:03 ms3 07/19 12:51 Order name: Labs collected and sent; Complete Time: 13:25 ms3 07/19 12:51 Order name: O2 Per Protocol; Complete Time: 12:57 ms3 07/19 12:51 Order name: O2 Sat Monitoring; Complete Time: 12:57 ms3 07/19 12:51 Order name: Vital Signs; Complete Time: 13:25 ms3 EC:32 Rate is 76 beats/min. Rhythm is regular. QRS [place]ison is Normal. SC interval is normal. QRS ms3 interval is normal. QT interval is normal. Clinical impression: Normal ECG. Interpreted by me. Reviewed by me. Administered Medications: 14:20 Drug: vancoMYCIN IVPB 1 grams IVPB once over 2 hrs Route: IVPB; Infused Over: 2 hrs; ko1 Site: left antecubital; Disposition Summary: 07/19/23 14:14 Hospitalization Ordered Notes: Hospitalization Status: Inpatient Admission ms3 Provider: Whitfield, Mohammad ms3 Condition: Stable ms3 Problem: new ms3 Symptoms: are unchanged ms3 Bed/Room Type: Standard ms3 Location: [facility] ER HOLD(07/19/23 16:37) jl7 Room Assignment: ERHOLD-(07/19/23 16:37) jl7 Diagnosis - Cellulitis of right upper limb ms3 - Lymphedema Right upper extremitis ms3 - Chills (without fever) ms3 Forms: - Medication Reconciliation Form ms3 - SBAR form ms3 - Leadership Thank You Letter ms3 Signatures: Dispatcher [employer] EDNancy Dominguez Jahala, RN RN jl7 Amanda Astudillo RN RN [email or web address] Leobardo Mancini, DO ms3 Lili Lopez RN RN ko1 Corrections: (The following items were deleted from the chart) 16:28 14:14 ms3 bd 16:37 14:14 Telemetry/MedSurg (Inpatient) ms3 jl7 16:37 16:28 221 jl7
[2023-07-19] MEDS ORDERED: VANCOMYCIN 1 GM in NA CHLORIDE 0.9% 250 ML IVPB ONE (14:20)
[2023-07-19] MEDS ORDERED: VANCOMYCIN 1.5 GM in NA CHLORIDE 0.9% 500 ML IVPB SCH (15:51)
[2023-07-19] MEDS ORDERED: MORPHINE 2 MG/ML SYR IV PRN (15:53)
[2023-07-19] MEDS ORDERED: ONDANSETRON 4 MG/2 ML VIAL IV PRN (15:53)
[2023-07-19] MEDS ORDERED: ACETAMINOPHEN 500 MG TAB PO PRN (15:53)
[2023-07-19] MEDS ORDERED: NA CHLORIDE 0.9% 1,000 ML IV SCH (16:00)
--- NOTE | 2023-07-19 16:04 | P.HP ---
Certification for Inpatient Patient admitted to: Observation With expected LOS: <2 Midnights Patient will require the following post-hospital care: None Practitioner: I am a practitioner with admitting privileges, knowledge of patient current condition, hospital course, and medical plan of care. Services: Services provided to patient in accordance with Admission requirements found in Title 42 Section 412.3 of the Code of Federal Regulations Patient History Date of Service: 07/19/23 Reason for admission: Cellulitis of the right upper extremity History of Present Illness: Patient is a 68-year-old female came to the hospital cellulitis of the right upper extremity. She had erythema from the chest wall up to the elbow. She says she has had this recurrently since she has had a mastectomy many years ago for breast cancer. She gets the swelling and the erythema after a few months. It recurs quite frequently. She came to the ER because it was recurring. Normally she gets a couple bags of IV antibiotics and she is discharged. However, because of the severity of the edema and the erythema emergency room physician wanted to at least admit her overnight. Plan is to go ahead and admit her for observation. As long as her erythema and edema improves we will go ahead and plan to discharge her home in the morning. Home medications list reviewed: No - Past Medical/Surgical History -: Breast Cancer -: Cellulitis -: Lymphedema of the right upper extremity status post meniscectomy -: Masectomy/lumpectomy - Family History Father Family History: Reviewed- Non-Contributory - Social History Smoking Status: Former smoker Alcohol use: No CD- Drugs: No Review of Systems 10-point ROS is otherwise unremarkable Physical Examination - Vital Signs Temperature: 98 F (reviewed) - Physical Exam General: Alert, In no apparent distress, Oriented x3 HEENT: Atraumatic, PERRLA, Mucous membr. moist/pink, EOMI, Sclerae nonicteric Neck: Supple, 2+ carotid pulse no bruit, No LAD, Without JVD or thyroid abnormality Respiratory: Clear to auscultation bilaterally, Normal air movement Cardiovascular: Regular rate/rhythm, Normal S1 S2 Gastrointestinal: Normal bowel sounds, Soft and benign, Non-distended, No tenderness Musculoskeletal: No clubbing, No swelling, No tenderness Integumentary: Tenderness/swelling, Erythema, Warmth, Other (Right upper extremity) Neurological: Normal gait, Normal speech, Normal strength at 5/5 x4 extr, Normal tone, Sensation intact, Cranial nerves 3-12 intact, Normal affect Lymphatics: No axilla or inguinal lymphadenopathy - Studies Laboratory Data (last 24 hrs) 07/19/23 07/19/23 07/19/23 13:15 13:15 13:15 WBC 9.50 Hgb 13.9 Hct 41.0 Plt Count 210 PT 12.2 INR 1.11 APTT 30.2 Sodium 138 Potassium 3.4 L BUN 14 Creatinine 0.88 Glucose 172 H Total Bilirubin 0.6 AST 27 ALT 29 Alkaline Phosphatase 65 Assessment & Plan - Problems (Diagnosis) (1) Right arm cellulitis Current Visit: Yes Status: Acute (2) H/O mastectomy Current Visit: Yes Status: Acute (3) Lymphedema of right upper extremity Current Visit: Yes Status: Acute - Plan PLAN: 1. Continue with IV antibiotic 2. Continue with local wound care 3. Wound care consultation 4. Gentle IV hydration 5. Monitor CBC 6. Strict blood sugar monitoring 7. Pain control 8. GI and DVT prophylaxis Discharge Plan: Home Plan to discharge in: 24 Hours - Advance Directives Does patient have a Living Will: No Does patient have a Durable POA for Healthcare: No Critical Care: No Time Spent Managing PTS Care (In Minutes): 35
[2023-07-19 16:13] VITALS: TEMP 98
[2023-07-19] MEDS ORDERED: NA CHLORIDE 0.9% 1,000 ML ONE (16:30)
[2023-07-19] MEDS ORDERED: VANCOMYCIN 500 MG/VIAL ONE (16:35)
[2023-07-19] MEDS ORDERED: VANCOMYCIN 1.5 GM in NA CHLORIDE 0.9% 500 ML IVPB ONE (17:00)
[2023-07-19 17:44] VITALS: BMI 32.0
[2023-07-19] MEDS ORDERED: ACETAMINOPHEN 500 MG TAB ONE (18:44)
[2023-07-19 23:29] VITALS: BP 112/54; O2SAT 99
--- NOTE | 2023-07-20 09:20 | P.CNS ---
Date of Consult: 07/20/23 Reason for Consult: cellulitis RUE Chief Complaint: Cellulitis of the right upper extremity Home medications list reviewed: Yes Home Medications: Hydrocodone 10/APAP 325 [[place] 10325] 1 tab PO Q6H PRN #20 tab 07/19/23 Minocycline HCl 100 mg PO BID #28 tab 07/19/23 Smz./Tmp. [Bactrim Ds 800 MG/160 MG] 1 tab PO BID #28 tab 07/19/23 - Past Medical/Surgical History -: Breast Cancer -: Cellulitis -: Lymphedema of the right upper extremity status post meniscectomy -: Masectomy/lumpectomy - Family History Father Family History: Reviewed- Non-Contributory - Social History Alcohol use: No CD- Drugs: No Physical Examination Temp Pulse Resp BP Pulse Ox 98 F 79 16 112/54 L 07/19/23 16:08 07/19/23 16:35 07/19/23 16:35 07/19/23 16:35 Laboratory Data (last 24 hrs) 07/19/23 07/19/23 07/19/23 13:15 13:15 13:15 WBC 9.50 Hgb 13.9 Hct 41.0 Plt Count 210 PT 12.2 INR 1.11 APTT 30.2 Sodium 138 Potassium 3.4 L BUN 14 Creatinine 0.88 Glucose 172 H Total Bilirubin 0.6 AST 27 ALT 29 Alkaline Phosphatase 65 Conclusions/Impression: Recommendations - Consider start on Bactrim PO for 10 days upon discharge - Follow up with PCP in 1-2 weeks
--- NOTE | 2023-07-20 12:27 | EKG ---
Test Date: 2023-07-19 Test Time: 13:24:25 [place] Machine Operator: MARIZA MEASUREMENT RESULTS: Intervals: Rate: 76 ME: 162 QRSD: 70 QT: 392 QTc: 441 [place]: P: 64 ME: 162 QRS: 41 T: 60 INTERPRETIVE STATEMENTS: Normal sinus rhythm Normal ECG Compared to ECG 01/30/2023 23:01:01 No significant changes Electronically Signed On 07-20-23 12:24:38 CDT by Srinivasa Muse
== END 2023-07-19 19:42 | disposition left against medical advice (07) ==
LOC: ER 12:38 → ERHOLD 15:53
PROVIDERS: ADMIT Hospitalist; ATTEND Hospitalist
DX: L03.113 Cellulitis of right upper limb (principal); I97.2 Postmastectomy lymphedema syndrome; E78.00 Pure hypercholesterolemia, unspecified; R68.83 Chills (without fever); Z85.3 Personal history of malignant neoplasm of breast
CPT/HCPCS: 36415; 80053; 83605; 85025; 85610; 85730; 87040; 93005; 96374; 99284; J7030; J7040; J7050

== ENCOUNTER 2023-08-04 07:47 | Emergency (ER) | payer OTHER ==
[2023-08-04] MEDS ORDERED: IBUPROFEN 200 MG TAB PO ONE (08:36)
--- OUTSIDE RECORDS SUMMARY | 2023-08-04 09:03 | XMS REPORT | Continuity of Care Document ---
:1955 Author Organization [facility] t Address [address] [place] [address] Care Team Providers Name Role Phone BONITA SHANKAR Primary Care Physician Unavailable [email or web address] Attending Clinician Unavailable Radiology Attending Clinician Unavailable RADIOLOGY Attending Clinician Unavailable [email or web address] Admitting Clinician Unavailable PAULA STEIN Admitting Clinician Unavailable Payers Payer Name Policy Type Policy Number Effective Date Expiration Date S yovani MEDICARE PART A [id number] 2008 \T\ B 00:00:00 MEDICAID [place] [id number] 2014 00:00:00 Problems This patient has no known problems. Allergies, Adverse Reactions, Alerts Allergy Allergy Status Severity Reaction(s) Onset Inactive Treating Comm ents Source Name Type Date Date Clinician CODEINE DRUG Active ITCHING [facility] 02-09 it of 00:00: [address] [place] Medications This patient has no known medications. Procedures This patient has no known procedures. Encounters Start End Encounter Admission Attending Care Care Encounter Source Date/Time Date/Time Type Type Clinicians Facility Department ID 2023-07-29 2023-07-29 Outpatient [email or web address] PRIV PRIV [id number] [facility] 00:00:00 00:00:00 diyala_S [id number] Medic al 2019-12-06 2019-12-06 Hospital Radiology [facility] [id number] 13:42:00 23:59:00 Encounter Rosalie [id number] [place] [id number] [place] [id number] 2019-12-06 2019-12-06 Outpatient R RADIOLOGY [facility] [id number] [facility] 13:41:03 13:41:00 ity of [facility] 2019-12-06 2019-12-06 [facility] Radiology [facility] [id number] 13:40:00 13:41:00 Encounter Rosalie [id number] [place] [id number] [place] [id number] Results This patient has no known results.
--- NOTE | 2023-08-04 09:24 | ER ---
Nurse's Notes [facility] Name: Melisa Daugherty Age: 68 yrs Sex: Female : 1955 Arrival Date: 08/04/2023 Time: 07:47 Bed 14 Private MD: Diagnosis: Viral syndrome Presentation: 08/04 07:59 Chief complaint: Patient states: Sore throat, MAK, R ear pain, chills, body aches since ll1 yesterday. Coronavirus screen: Vaccine status: Patient reports receiving the 2nd dose of the covid vaccine. Client denies travel out of the [place] in the last 14 days. chills, fatigue, headache, muscle pain, sore throat. Ebola Screen: Patient denies travel to an Ebola-affected area in the 21 days before illness onset. Initial Sepsis Screen: Does the patient meet any 2 criteria? No. Patient's initial sepsis screen is negative. Does the patient have a suspected source of infection? Yes: Other: sore throat/ear pain. Risk Assessment: Do you want to hurt yourself or someone else? Patient reports no desire to harm self or others. Onset of symptoms was August 03, 2023. 07:59 Method Of Arrival: Ambulatory ll1 07:59 Acuity: MACEY 4 ll1 Historical: - Allergies: 07:59 Codeine; ll1 - PMHx: 07:59 Breast Cancer 2005; High Cholesterol; Right arm lymphedema; ll1 - PSHx: 07:59 Lymph nodes removed from right arm due to breast cancer; right mastectomy; ll1 - Immunization history:: Adult Immunizations up to date. - Social history:: Smoking status: Patient denies any tobacco usage or history of. Screenin:29 [facility] ED Fall Risk Assessment (Adult) History of falling in the last 3 months, kc6 including since admission No falls in past 3 months (0 pts) Confusion or Disorientation No (0 pts) Intoxicated or Sedated No (0 pts) Impaired Gait No (0 pts) Mobility Assist Device Used No (0 pt) Altered Elimination No (0 pt) Score/Fall Risk Level 0 - 2 = Low Risk. Abuse screen: Denies threats or abuse. Denies injuries from another. Nutritional screening: No deficits noted. Tuberculosis screening: No symptoms or risk factors identified. Assessment: 08:30 General: Appears in no apparent distress. comfortable, Behavior is calm, cooperative, kc6 appropriate for age, Reports chills for feeling ill for. Pain: Complains of pain in headache, sore throat. Neuro: Level of Consciousness is awake, alert, obeys commands, Oriented to person, place, time, situation, Appropriate for age Reports headache. Cardiovascular: Capillary refill < 3 seconds. Respiratory: Airway is patent Trachea midline Respiratory effort is even, unlabored, Respiratory pattern is regular, symmetrical, Breath sounds are clear bilaterally. GI: No signs and/or symptoms were reported involving the gastrointestinal system. : No signs and/or symptoms were reported regarding the genitourinary system. EENT: Throat is reddened bilaterally with gag reflex present. Derm: No signs and/or symptoms reported regarding the dermatologic system. Skin is intact, is healthy with good turgor, Skin is pink, warm \T\ dry. Musculoskeletal: No signs and/or symptoms reported regarding the musculoskeletal system. Circulation, motion, and sensation intact. Capillary refill < 3 seconds, Range of motion: intact in all extremities. 09:15 Reassessment: Patient appears in no apparent distress at this time. No changes from kc6 previously documented assessment. Patient and/or family updated on plan of care and expected duration. Pain level reassessed. Patient is alert, oriented x 3, equal unlabored respirations, skin warm/dry/pink. Vital Signs: 07:59 BP 145 / 88; Pulse 77; Resp 17; Temp 99.3; Pulse Ox 98% on R/A; Weight 77.11 kg; Height ll1 5 ft. 2 in. ; Pain 4/10; 09:17 Pulse 63; Resp 18 S; Pulse Ox 93% on R/A; kc6 07:59 Body Mass Index 31.09 (77.11 kg, 157.48 cm) ll1 07:59 Pain Scale: Adult ll1 ED Course: 07:51 Patient arrived in ED. im 07:51 [facility] jh7 07:51 Uli Gomez MD is Attending Physician. jh7 07:55 Milagro Wall RN is Primary Nurse. kc6 07:59 Arm band placed on Patient placed in an exam room, on a stretcher. ll1 08:01 Triage completed. ll1 08:29 Patient has correct armband on for positive identification. Bed in low position. Call kc6 light in reach. Side rails up X2. Client placed on continuous cardiac and pulse oximetry monitoring. NIBP monitoring applied. :30 No provider procedures requiring assistance completed. Patient did not have IV access kc6 during this emergency room visit. Administered Medications: : Drug: Ibuprofen PO 600 mg PO once Route: PO; kc6 09:17 Follow up: Response: No adverse reaction kc6 Medication: : VIS not applicable for this client. kc6 Outcome: :23 Discharge ordered by MD. pandey : Discharged to home ambulatory, kc6 :30 Condition: improved :30 Discharge instructions given to patient, Instructed on discharge instructions, follow up and referral plans. Demonstrated understanding of instructions, follow-up care, :30 Patient left the ED. kc6 Signatures: Nilsa Soto, RN RN ll1 Kandace Betts, LEARNING SUPPORT AIDE LEARNING SUPPORT AIDE [email or web address] Milagro Wall RN RN kc6 Delmy Amos
--- NOTE | 2023-08-04 09:24 | EDPHYS ---
Physician Documentation [facility] Name: Melisa Daugherty Age: 68 yrs Sex: Female : 1955 Arrival Date: 08/04/2023 Time: 07:47 Bed 14 Private MD: ED Physician Uli Gomez HPI: 08/04 08:00 This 68 yrs old Female presents to ER via Ambulatory with complaints of Sore Throat, jh7 Headache, Ear Pain. 08:00 The patient presents with sore throat. The patient describes throat pain as raw. Onset: jh7 The symptoms/episode began/occurred yesterday. Associated signs and symptoms: Pertinent positives: chills, earache, headache, body aches, Pertinent negatives chest pain, cough, diarrhea, nausea, shortness of breath, vomiting. Historical: - Allergies: 07:59 Codeine; ll1 - PMHx: 07:59 Breast Cancer 2005; High Cholesterol; Right arm lymphedema; ll1 - PSHx: 07:59 Lymph nodes removed from right arm due to breast cancer; right mastectomy; ll1 - Immunization history:: Adult Immunizations up to date. - Social history:: Smoking status: Patient denies any tobacco usage or history of. ROS: 08:00 Eyes: Negative for injury, pain, redness, and discharge, Neck: Negative for injury, jh7 pain, and swelling, Cardiovascular: Negative for chest pain, palpitations, and edema, Respiratory: Negative for shortness of breath, cough, wheezing, and pleuritic chest pain, Abdomen/GI: Negative for abdominal pain, nausea, vomiting, diarrhea, and constipation, Back: Negative for injury and pain, MS/Extremity: Negative for injury and deformity, Skin: Negative for injury, rash, and discoloration, 08:00 Constitutional: Positive for body aches, chills, fatigue, 08:00 ENT: Positive for ear pain, sore throat, Negative for difficulty handling secretions, 08:00 Neuro: Positive for headache, Negative for altered mental status, dizziness, loss of consciousness, seizure activity, syncope, visual changes, weakness, 08:00 All other systems are negative, Exam: 08:00 Constitutional: This is a well developed, well nourished patient who is awake, alert, jh7 and in no acute distress. Head/Face: Normocephalic, atraumatic. Neck: Trachea midline, no thyromegaly or masses palpated, and no cervical lymphadenopathy. Supple, full range of motion without nuchal rigidity, or vertebral point tenderness. No Meningismus. Cardiovascular: Regular rate and rhythm with a normal S1 and S2. No gallops, murmurs, or rubs. Normal PMI, no JVD. No pulse deficits. Respiratory: Lungs have equal breath sounds bilaterally, clear to auscultation and percussion. No rales, rhonchi or wheezes noted. No increased work of breathing, no retractions or nasal flaring. Abdomen/GI: Soft, non-tender, with normal bowel sounds. No distension or tympany. No guarding or rebound. No evidence of tenderness throughout. Skin: Warm, dry with normal turgor. Normal color with no rashes, no lesions, and no evidence of cellulitis. MS/ Extremity: Pulses equal, no cyanosis. Neurovascular intact. Full, normal range of motion. Neuro: Awake and alert, GCS 15, oriented to person, place, time, and situation. Normal gait. 08:00 ENT: TM's: dullness, bilaterally, No erythema or bulging, Posterior pharynx: erythema, that is mild, Vital Signs: 07:59 BP 145 / 88; Pulse 77; Resp 17; Temp 99.3; Pulse Ox 98% on R/A; Weight 77.11 kg; Height ll1 5 ft. 2 in. ; Pain 4/10; 09:17 Pulse 63; Resp 18 S; Pulse Ox 93% on R/A; kc6 07:59 Body Mass Index 31.09 (77.11 kg, 157.48 cm) ll1 07:59 Pain Scale: Adult ll1 MDM: 07:52 Patient medically screened. [facility] 09:20 Differential diagnosis: Allergic rhinitis, upper respiratory infection, viral syndrome. [facility] Data reviewed: vital signs, nurses notes. I considered the following discharge prescriptions or medication management in the emergency department Medications were administered in the Emergency Department. See MAR. Counseling: I had a detailed discussion with the patient and/or guardian regarding the historical points, exam findings, and any diagnostic results supporting the discharge/admit diagnosis, to return to the emergency department if symptoms worsen or persist or if there are any questions or concerns that arise at home. Response to treatment: the patient's symptoms have mildly improved after treatment. Special discussion: I discussed with the patient/guardian that the patient's current presentation does not indicate dosing of antibiotics. They should follow-up with their primary care provider and return if the symptoms persist or progress. 08/04 08:05 Order name: Strep; Complete Time: 09:09 [facility] 08/04 08:05 Order name: COVID-19 SARS RT PCR; Complete Time: 09:18 [facility] 08/04 08:05 Order name: Flu; Complete Time: : [facility] 08/04 09:03 Order name: Throat Culture EDMS Administered Medications: : Drug: Ibuprofen PO 600 mg PO once Route: PO; 6 09:17 Follow up: Response: No adverse reaction [facility] Disposition: 10:08 Co-signature as Attending Physician, Uli Gomez MD I reviewed the patient's care rt provided by the Advanced Practice Provider and agree with the diagnosis and treatment plan. Disposition Summary: 08/04/23 09:23 Discharge Ordered Notes: Location: Home [facility] Problem: new [facility] Symptoms: have improved [facility] Condition: Stable [facility] Diagnosis - Viral syndrome [facility] Followup: [facility] - With: Private Physician - When: 2 - 3 days - Reason: Recheck today's complaints Discharge Instructions: - Discharge Summary Sheet [facility] - Viral Illness, Adult [facility] Forms: - Medication Reconciliation Form [facility] - Thank You Letter [facility] - Patient Portal Instructions [facility] - Leadership Thank You Letter [facility] Signatures: Dispatcher [employer] Nilsa Lindo RN RN ll1 Kandace Betts FNP FNP [facility] Milagro Wall RN RN kc6 Uli Gomez MD MD rt
[2023-08-04 09:49] VITALS: BP 145/88; TEMP 99.3
[2023-08-04 09:51] VITALS: O2SAT 93
== END 2023-08-04 09:30 | disposition home or self-care (01) ==
LOC: ER 07:47
DX: B34.9 Viral infection, unspecified (principal); Z11.52 Encounter for screening for COVID-19; Z88.5 Allergy status to narcotic agent
CPT/HCPCS: 87070; 87081; 87635; 87804; 99283

== ENCOUNTER 2024-08-08 17:24 | Emergency (ER) | payer OTHER ==
--- OUTSIDE RECORDS SUMMARY | 2024-08-08 17:28 | XMS REPORT | Continuity of Care Document ---
Author Name Unknown Address [address] [place] [address] [facility] thconnect Address [address] [place] [address] Care Team Providers Care Manager Training Name Role Phone BONITA SHANKAR Primary Care Physician Unav ailEDMAR Martines Attending Clinician Edmar Damian MD Attending Clinician [phone] Doctor Unassigned, [place] Attending Clinician U navailable [email or web address]_S Attending Clinician Unavailrio chaidez Radiology Attending Clinician Unavailable RADIOLOGY Attending Clinician Unavailable EDMAR DAN Admitting Clinician Edmar Damian MD Admitting Clinician [phone] [email or web address]_S Admitting Clinician UnavailPAULA Moss Admitting Clinician Unavailable Payers Payer Name Policy Type Policy Number Effective Date Expirati on Date Source [facility] D[facility] H[facility] D SNP [id number] 2022 00:00:00 [employer] DUAL COMPLETE HMO DSNP [id number] 2023 00:00:00 MEDICARE PART A \T\ B [id number] 2008 00:00:00 Allergies, Adverse Reactions, Alerts Allergy Name Allergy Type Status Severity Reaction(s) Onset Date Inactive Date Treating Clinician Comments Source CODEINE DRUG INGREDI Active ITCHING 02-09 00:00: 00 [facility] Codeine Propensi ty to adverse reaction s Active Itching 02-09 00:00: 00 [facility] Social History Social Habit Start Date Stop Date Quantity Comments Source [facility] Social function 2023-09-21 00:00:00 2023-09-21 00:00:00 [facility] Alcohol intake 2023-09-15 00:00:00 2023-09-15 00:00:00 0 /d [facility] Tobacco use and exposure 2023-08-30 00:00:00 2023-08-30 00:00:00 Smokeless tobacco non-user [facility] Sex Assigned At 1955 00:00:00 1955 00:00:00 [facility] Smoking Status Start Date Stop Date Source Never smoked tobacco [facility] Medications Ordered Medication Name Filled Medication Name Start Date Stop Date Current Medication? Ordering Clinician Indication Dosage Frequency Signature (SIG) Comments Components Source lactated ringers IV infusion 1,000 mL 2022-10 19:00: 00 Yes 1000mL at 50 mL/hr, 1,000 mL, IV Infusion, CONTINUOUS , Starting on Tue09/21/23 at 1300, Until Discontinu ed, Routine, PACU [facility] ondansetron (ZOFRAN (PF)) injection 4 mg 2022-10 18:57: 37 09-21 22:18 :43 No 4mg 4 mg, Slow IV Push, PRN, 1 dose, Starting on Tue09/21/23 at 1257, Until Tue09/21/23 at 1618, Routine, Nausea and Vomiting (N/V), PACU [facility] neomycin-po lymyxin-dex amethasone (MAXITROL) 3.5 mg/g-10,000 unit/g-0.1 % ophthalmic ointment 2022-10 18:56: 00 09-21 19:46 :22 No PRN, Starting on Tue09/21/23 at 1256, Until Tue09/21/23 at 1346, Routine, [facility]op [facility] sodium chloride (NS) injection 2022-10 18:55: 00 09-21 19:46 :22 No PRN, Starting on Tue09/21/23 at 1255, Until Tue09/21/23 at 1346, Routine, Intra-op [facility] dexamethaso ne (DECADRON PHOSPHATE) injection 2022-10 18:54: 00 09-21 19:46 :22 No PRN, Starting on Tue09/21/23 at 1254, Until Tue09/21/23 at 1346, Routine, Intra-op [facility] ceFAZolin (ANCEF) injection 2022-10 18:54: 00 09-21 19:46 :22 No PRN, Starting on Tue09/21/23 at 1254, Until Tue09/21/23 at 1346, JEANNE, Intra-op Univers [facility] carbachoL (MIOSTAT) 0.01 % intraocular injection 2022-10 18:53: 00 09-21 19:46 :22 No PRN, Starting on Tue09/21/23 at 1253, Until Tue09/21/23 at 1346, Routine, Intra-op Univers [facility] chondroitin sulf-sod hyaluronate (DUOVISC VISCO ELASTIC) intraocular injection 2022-10 18:47: 00 09-21 19:46 :22 No PRN, Starting on Tue09/21/23 at 1247, Until Tue09/21/23 at 1346, Routine, Intra-op [facility] EPINEPHrine 1:1,000 (1 mg/mL) (ADRENALIN) 0.5 mL in balanced salt soln no.1 irrig. (BSS PLUS) 500 mL OR irrigation 2022-10 18:46: 00 09-21 19:46 :22 No PRN, Starting on Tue09/21/23 at 1246, Intra-op Univers [facility] tetracaine (PONTOCAINE ) 0.5 % ophthalmic drops 2022-10 18:40: 00 09-21 19:46 :22 No PRN, Starting on Tue09/21/23 at 1240, Until Tue09/21/23 at 1346, Routine, Intra-op Univers [facility] water for irrigation irrigation solution 2022-10 18:34: 00 09-21 19:46 :22 No PRN, Starting on Tue09/21/23 at 1234, Until Tue09/21/23 at 1346, Routine, Intra-op Univers [facility] Hyaluronida se, Human Recomb. (HYLENEX) injection 2022-10 18:33: 00 09-21 19:46 :22 No PRN, Starting on Tue09/21/23 at 1233, Until Tue09/21/23 at 1346, Routine, Intra-op [facility] eye block syringe 11 mL 2022-10 18:32: 00 09-21 19:46 :22 No PRN, Starting on Tue09/21/23 at 1232, Until Tue09/21/23 at 1346, Intra-op [facility] cyclopent 1%-tropic 1%-phenyl 2.5%-ketor 0.5% (MYDRIATIC #5) ophthalmic solution syringe 0.5 mL 2022-10 18:00: 00 09-21 17:56 :00 No .5mL 0.5 mL, Left Eye, ONCE, 1 dose, On Tue09/21/23 at 1200, Routine, DSU Pre-op [facility] lactated ringers IV infusion 1,000 mL 2022-10 18:00: 00 09-21 17:56 :00 No 1000mL at 42 mL/hr, 1,000 mL, IV Infusion, ONCE, 1 dose, On Tue09/21/23 at 1200, Routine, DSU Pre-op [facility] omeprazole 20 mg capsule 2022-10 14:18: 36 Yes 20mg Take 1 capsule by mouth in the morning. [facility] melatonin 3 mg tablet 2022-10 14:18: 36 Yes 3mg Take 1 tablet by mouth at bedtime. [facility] melatonin 3 mg tablet 2022-10 13:46: 22 Yes 3mg Take 1 tablet by mouth at bedtime. [facility] omeprazole 20 mg capsule 2022-10 13:02: 03 Yes 20mg Take 1 capsule by mouth in the morning. [facility] sodium chloride (NS) injection 2022-10 16:23: 00 09-07 16:28 :55 No PRN, Starting on Tue09/07/23 at 1023, Until Tue09/07/23 at 1028, Routine, Intra-op [facility] neomycin-po lymyxin-dex amethasone (MAXITROL) 3.5 mg/g-10,000 unit/g-0.1 % ophthalmic ointment 2022-10 16:23: 00 09-07 16:28 :55 No PRN, Starting on Tue09/07/23 at 1023, Until Tue09/07/23 at 1028, Routine, Intra-op [facility] dexamethaso ne (DECADRON PHOSPHATE) injection 2022-10 16:23: 00 09-07 16:28 :55 No PRN, Starting on Tue09/07/23 at 1023, Until Tue09/07/23 at 1028, Routine, Intra-op [facility] ceFAZolin (ANCEF) injection 2022-10 16:23: 00 09-07 16:28 :55 No PRN, Starting on Tue09/07/23 at 1023, Until Tue09/07/23 at 1028, JEANNE, Intra-op [facility] carbachoL (MIOSTAT) 0.01 % intraocular injection 2022-10 16:22: 00 09-07 16:28 :54 No PRN, Starting on Tue09/07/23 at 1022, Until Tue09/07/23 at 1028, Routine, Intra-op [facility] EPINEPHrine 1:1,000 (1 mg/mL) (ADRENALIN) injection 2022-10 16:21: 00 09-07 16:28 :55 No PRN, Starting on Tue09/07/23 at 1021, Until Tue09/07/23 at 1028, Routine, Intra-op [facility] chondroitin sulf-sod hyaluronate (DUOVISC VISCO ELASTIC) intraocular injection 2022-10 16:12: 00 09-07 16:28 :55 No PRN, Starting on Tue09/07/23 at 1012, Until Tue09/07/23 at 1028, Routine, Intra-op [facility] balanced salt irrig soln comb1 (BSS PLUS) ophthalmic solution 500 mL bag 2022-10 16:10: 00 09-07 16:28 :54 No PRN, Starting on Tue09/07/23 at 1010, Until Tue09/07/23 at 1028, Routine, Intra-op [facility] water for irrigation irrigation solution 2022-10 16:02: 00 09-07 16:28 :55 No PRN, Starting on Tue09/07/23 at 1002, Until Tue09/07/23 at 1028, Routine, Intra-op [facility] Hyaluronida se, Human Recomb. (HYLENEX) injection 2022-10 16:00: 00 09-07 16:28 :54 No PRN, Starting on Tue09/07/23 at 1000, Until Tue09/07/23 at 1028, Routine, Intra-op [facility] eye block syringe 11 mL 2022-10 16:00: 00 09-07 16:28 :54 No PRN, Starting on Tue09/07/23 at 1000, Until Tue09/07/23 at 1028, [facility],000 mL 2022-10 15:00: 00 09-07 15:10 :00 No 1000mL at 42 mL/hr, 1,000 mL, IV Infusion, ONCE, 1 dose, On Tue09/07/23 at 0900, Routine, DSU Pre-op [facility] cyclopent 1%-tropic 1%-phenyl 2.5%-ketor 0.5% (MYDRIATIC #5) ophthalmic solution syringe 0.5 mL 2022-10 15:00: 00 09-07 15:10 :00 No .5mL 0.5 mL, Right Eye, ONCE, 1 dose, On Tue09/07/23 at 0900, Routine, DSU Pre-op [facility] omeprazole 20 mg capsule 2022-10 11:01: 08 Yes 20mg Take 1 capsule by mouth in the morning. [facility] Vital Signs Vital Name Observation Time Observation Value Comments S ource Heart rate 2023-09-21 19:20:00 73 /min [facility] Oxygen saturation in Arterial blood by Pulse oximetry 2023-09-21 19:20:00 94 /min [facility] Systolic blood pressure 2023-09-21 19:15:00 124 mm[Hg] [facility] Diastolic blood pressure 2023-09-21 19:15:00 51 mm[Hg] [facility] Respiratory rate 2023-09-21 19:15:00 18 /min [facility] Body temperature 2023-09-21 19:00:00 36.39 Zoila [facility] Body height 2023-09-15 15:45:00 157.5 cm [facility] Body weight 2023-09-15 15:45:00 77.111 kg [facility] BMI 2023-09-15 15:45:00 31.09 kg/m2 [facility] Systolic blood pressure 2023-09-21 19:10:00 138 mm[Hg] [facility] Diastolic blood pressure 2023-09-21 19:10:00 73 mm[Hg] [facility] Heart rate 2023-09-21 19:10:00 71 /min [facility] Respiratory rate 2023-09-21 19:10:00 16 /min [facility] Oxygen saturation in Arterial blood by Pulse oximetry 2023-09-21 19:10:00 95 /min [facility] Body temperature 2023-09-21 19:00:00 36.39 Zoila [facility] Body height 2023-09-15 15:45:00 157.5 cm [facility] Body weight 2023-09-15 15:45:00 77.111 kg [facility] BMI 2023-09-15 15:45:00 31.09 kg/m2 [facility] Systolic blood pressure 2023-09-07 16:45:00 122 mm[Hg] [facility] Diastolic blood pressure 2023-09-07 16:45:00 81 mm[Hg] [facility] Heart rate 2023-09-07 16:45:00 64 /min [facility] Respiratory rate 2023-09-07 16:45:00 16 /min [facility] Oxygen saturation in Arterial blood by Pulse oximetry 2023-09-07 16:45:00 96 /min [facility] Body temperature 2023-09-07 16:29:00 36.39 Zoila [facility] Body weight 2023-09-07 15:04:00 80.74 kg [facility] BMI 2023-09-07 15:04:00 32.56 kg/m2 [facility] Body height 2023-08-30 22:00:00 157.5 cm [facility] Heart rate 2023-09-07 15:04:00 64 /min [facility] Body temperature 2023-09-07 15:04:00 36.39 Zoila [facility] Respiratory rate 2023-09-07 15:04:00 18 /min [facility] Body weight 2023-09-07 15:04:00 80.74 kg [facility] BMI 2023-09-07 15:04:00 32.56 kg/m2 [facility] Oxygen saturation in Arterial blood by Pulse oximetry 2023-09-07 15:04:00 97 /min [facility] Body height 2023-08-30 22:00:00 157.5 cm [facility] Procedures Procedure Date / Time Performed Performing Clinician Source PHACOEMULSIFICATION OF CATARACT WITH INTRAOCULAR LENS IMPLANT 2023-09-21 18:21:00 Edmar Dan [facility] DAY SURGERY - ADC 2023-09-21 06:01:00 Doctor Unassigned, [place] [facility] PHACOEMULSIFICATION OF CATARACT WITH INTRAOCULAR LENS IMPLANT 2023-09-07 15:48:00 Edmar Dan [facility] DAY SURGERY - ADC 2023-09-07 06:01:00 Doctor Unassigned, [place] [facility] Encounters Start Date/Time End Date/Time Encounter Type Admission Type Attending [facility] Care Department Encounter ID Source 2024-03-07 14:15:17 2024-03-07 14:15:[address] [facility] [id number] [facility] 2023-09-21 11:45:00 2023-09-21 13:20:00 Outpatient R EDMAR DAN [facility] OPH [id number] [facility] 2023-09-21 11:45:00 2023-09-21 13:20:00 Hospital Encounter Edmar Dan [facility] [id number] [facility] 2023-09-21 12:36:00 2023-09-21 13:10:00 Surgery Edmar Dan [facility] [id number] [id number] [facility] 2023-09-07 08:52:00 2023-09-07 11:01:00 Hospital Encounter Edmar Dan [facility] [id number] [id number] [facility] 2023-09-07 08:52:00 2023-09-07 11:01:00 Outpatient R EDMAR DAN [facility] OPH [id number] [facility] 2023-09-07 09:32:00 2023-09-07 10:06:00 Surgery Edmar Dan [facility] [id number] [id number] [facility] 2023-09-07 00:00:00 2023-09-07 00:00:00 Orders Only Doctor Unassigned, [place] [facility] [id number] [id number] [id number] [facility] 2023-07-29 00:00:00 2023-07-29 00:00:00 Outpatient [email or web address]_Ka diyala_S [facility] [id number] [facility] 2019-12-06 13:42:00 2019-12-06 23:59:00 Hospital Encounter Radiology [facility] [id number] [id number] [id number] [id number] 2019-12-06 13:41:03 2019-12-06 13:41:00 Outpatient R RADIOLOGY [facility] [id number] [facility] 2019-12-06 13:40:00 2019-12-06 13:41:00 Hospital Encounter Radiology [facility] [id number] [id number] [id number] [id number]
[2024-08-08] MEDS ORDERED: CLINDAMYCIN 600MG/D5W 50 ML IV ONE (18:19)
[2024-08-08] MEDS ORDERED: NA CHLORIDE 0.9% 500 ML ONE (18:19)
--- NOTE | 2024-08-08 19:20 | ER ---
Nurse's Notes [facility] Name: Melisa Daugherty Age: 69 yrs Sex: Female : 1955 Arrival Date: 08/08/2024 Time: 17:24 Bed 14 Private MD: Diagnosis: Lymphangitis Presentation: 08/08 17:42 Chief complaint: Patient states: Woke up this morning and was not feeling well. Pt cm10 noticed that her right arm was red and warm to the touch. Pt has lymphedema to that right arm. Coronavirus screen: Client denies travel out of the [place] in the last 14 days. Ebola Screen: Patient denies travel to an Ebola-affected area in the 21 days before illness onset. No symptoms or risks identified at this time. Initial Sepsis Screen: Does the patient meet any 2 criteria? HR > 90 bpm. Does the patient have a suspected source of infection? No. Patient's initial sepsis screen is negative. Risk Assessment: Do you want to hurt yourself or someone else? Patient reports no desire to harm self or others. Onset of symptoms was August 08, 2024. 17:42 Method Of Arrival: Ambulatory cm10 17:42 Acuity: MACEY 3 cm10 Triage Assessment: 17:43 General: Appears in no apparent distress. comfortable, Behavior is calm, cooperative. cm10 Neuro: No deficits noted. Level of Consciousness is awake, alert, obeys commands, Oriented to person, place, time, situation, Appropriate for age. Historical: - Allergies: 17:43 Codeine; cm10 - PMHx: 17:43 Breast Cancer 2005; High Cholesterol; Right arm lymphedema; cm10 - PSHx: 17:43 Lymph nodes removed from right arm due to breast cancer; right mastectomy; cm10 - Immunization history:: Adult Immunizations up to date. - Infectious Disease History:: Denies. - Social history:: Smoking status: Patient denies any tobacco usage or history of. Screenin:10 [facility] ED Fall Risk Assessment (Adult) History of falling in the last 3 months, mb9 including since admission No falls in past 3 months (0 pts) Confusion or Disorientation No (0 pts) Intoxicated or Sedated No (0 pts) Impaired Gait No (0 pts) Mobility Assist Device Used No (0 pt) Altered Elimination No (0 pt) Score/Fall Risk Level 0 - 2 = Low Risk Oriented to surroundings, Maintained a safe environment, Educated pt \T\ family on fall prevention, incl call for assistance when getting out of bed. Abuse screen: Denies threats or abuse. Nutritional screening: No deficits noted. Tuberculosis screening: No symptoms or risk factors identified. Assessment: 18:23 General: Appears in no apparent distress. Behavior is calm, cooperative. Pain: mb9 Complains of pain in right arm Pain does not radiate. Quality of pain is described as throbbing, Pain began gradually, Is chronic. Neuro: Level of Consciousness is awake, alert, obeys commands, Oriented to person, place, time, situation, Appropriate for age. Cardiovascular: Patient's skin is warm and dry. Respiratory: Airway is patent Respiratory effort is even, unlabored, Respiratory pattern is regular, symmetrical. GI: No signs and/or symptoms were reported involving the gastrointestinal system. : No signs and/or symptoms were reported regarding the genitourinary system. Derm: Skin is pink, warm \T\ dry. Musculoskeletal: Swelling present in right arm. 19:00 Reassessment: Patient appears in no apparent distress at this time. Patient and/or kj2 family updated on plan of care and expected duration. Pain level reassessed. Patient is alert, oriented x 3, equal unlabored respirations, skin warm/dry/pink. Vital Signs: 17:42 BP 138 / 90; Pulse 93; Resp 18; Temp 98.6(O); Pulse Ox 99% on R/A; Weight 79.38 kg; cm10 Height 5 ft. 2 in. ; Pain 4/10; 19:24 BP 132 / 86; Pulse 80; Resp 18; Temp 98; Pulse Ox 100% on R/A; kj2 17:42 Body Mass Index 32.01 (79.38 kg, 157.48 cm) cm10 17:42 Pain Scale: Adult cm10 ED Course: 17:27 Patient arrived in ED. im 17:29 Rani Fatima MD is Attending Physician. gb1 17:43 Triage completed. cm10 17:43 Arm band placed on left wrist. Patient placed in an exam room, on a stretcher. cm10 18:10 Kamilah Up RN is Primary Nurse. mb9 18:10 Bed in low position. Call light in reach. Side rails up X 1. Provided Education on: mb9 press call light if needing anything. Client placed on continuous cardiac and pulse oximetry monitoring. NIBP monitoring applied. 18:23 Inserted saline lock: 20 gauge in left antecubital area, using aseptic technique. mb9 Flushed with 10 mL NS. 18:23 No provider procedures requiring assistance completed. mb9 19:25 IV discontinued, intact, bleeding controlled, No redness/swelling at site. Pressure kj2 dressing applied. Administered Medications: 18:22 CANCELLED (Other Intervention Used): ns0.45 % 500 ml IV at bolus once mb9 18:22 Drug: Clindamycin IVPB 600 mg IVPB once over 30 mins; (mix in 50 mL) Route: IVPB; mb9 Infused Over: 30 mins; Site: left antecubital; 19:05 Follow up: Response: No adverse reaction; IV Status: Completed infusion mb9 18:23 Drug: NS 0.9% IV 500 ml IV at bolus once; to be given as a bolus over 30 minutes Route: mb9 IV; Rate: bolus; Site: left antecubital; 19:03 Follow up: Response: No adverse reaction; IV Status: Completed infusion mb9 Medication: 18:10 VIS not applicable for this client. mb9 Outcome: 19:19 Discharge ordered by . franko 19:25 Discharged to home ambulatory, kj2 19:25 Condition: stable 19:25 Discharge instructions given to patient, Instructed on discharge instructions, follow up and referral plans. medication usage, Demonstrated understanding of instructions, follow-up care, medications, Prescriptions given X 1, 19:46 Patient left the ED. kj2 Signatures: Kamilah Up RN RN mb9 Delmy Amos Clarissa RN RN cm10 Rani Fatima MD MD gb1 Lara Cadena RN RN kj2 Corrections: (The following items were deleted from the chart) 18:22 18:22 NS IV 0.45 % 500 ml IV at bolus in left antecubital mb9 mb9
--- NOTE | 2024-08-08 19:20 | EDPHYS ---
Physician Documentation [facility] Name: Melisa Daugherty Age: 69 yrs Sex: Female : 1955 Arrival Date: 08/08/2024 Time: 17:24 Bed 14 Private MD: ED Physician Rani Fatima HPI: 08/08 18:57 This 69 yrs old Female presents to ER via Ambulatory with complaints of gb1 Fever, Arm Problem - swelling. Historical: - Allergies: 17:43 Codeine; cm10 - PMHx: 17:43 Breast Cancer 2005; High Cholesterol; Right arm lymphedema; cm10 - PSHx: 17:43 Lymph nodes removed from right arm due to breast cancer; right mastectomy; cm10 - Immunization history:: Adult Immunizations up to date. - Infectious Disease History:: Denies. - Social history:: Smoking status: Patient denies any tobacco usage or history of. Exam: 18:57 Constitutional: This is a well developed, well nourished patient who is awake, alert, gb1 and in no acute distress. Head/Face: Normocephalic, atraumatic. Eyes: Pupils equal round and reactive to light, extra-ocular motions intact. Lids and lashes normal. Conjunctiva and sclera are non-icteric and not injected. Cornea within normal limits. Periorbital areas with no swelling, redness, or edema. ENT: Nares patent. No nasal discharge, no septal abnormalities noted. Tympanic membranes are normal and external auditory canals are clear. Oropharynx with no redness, swelling, or masses, exudates, or evidence of obstruction, uvula midline. Mucous membranes moist. Neck: Trachea midline, no thyromegaly or masses palpated, and no cervical lymphadenopathy. Supple, full range of motion without nuchal rigidity, or vertebral point tenderness. No Meningismus. Chest/axilla: Normal chest wall appearance and motion. Nontender with no deformity. No lesions are appreciated. Cardiovascular: Regular rate and rhythm with a normal S1 and S2. No gallops, murmurs, or rubs. Normal PMI, no JVD. No pulse deficits. Respiratory: Lungs have equal breath sounds bilaterally, clear to auscultation and percussion. No rales, rhonchi or wheezes noted. No increased work of breathing, no retractions or nasal flaring. MS/ Extremity: Pulses equal, no cyanosis. Neurovascular intact. Full, normal range of motion. Right upper extremity is edematous and slightly warm to touch. Also tender to touch. Vital Signs: 17:42 BP 138 / 90; Pulse 93; Resp 18; Temp 98.6(O); Pulse Ox 99% on R/A; Weight 79.38 kg; cm10 Height 5 ft. 2 in. ; Pain 4/10; 19:24 BP 132 / 86; Pulse 80; Resp 18; Temp 98; Pulse Ox 100% on R/A; kj2 17:42 Body Mass Index 32.01 (79.38 kg, 157.48 cm) cm10 17:42 Pain Scale: Adult cm10 MDM: 17:44 Medical Screening Exam initiated gb1 19:21 Data reviewed: vital signs, nurses notes. ED course: 69-year-old female with a right gb1 upper extremity lymphangitis. I doubt acute upper extremity DVT as the patient's had the symptoms before and the ultrasound before and it leans more towards on exam to be an infectious etiology. I prescribed cephalexin and recommended outpatient evaluation by her primary care doctor of record. Given of positive precautions which he is compliant with prior to discharge home today.. Administered Medications: 18:22 CANCELLED (Other Intervention Used): ns0.45 % 500 ml IV at bolus once mb9 18:22 Drug: Clindamycin IVPB 600 mg IVPB once over 30 mins; (mix in 50 mL) Route: IVPB; mb9 Infused Over: 30 mins; Site: left antecubital; 19:05 Follow up: Response: No adverse reaction; IV Status: Completed infusion mb9 18:23 Drug: NS 0.9% IV 500 ml IV at bolus once; to be given as a bolus over 30 minutes Route: mb9 IV; Rate: bolus; Site: left antecubital; 19:03 Follow up: Response: No adverse reaction; IV Status: Completed infusion mb9 Disposition Summary: 08/08/24 19:19 Discharge Ordered Notes: Location: Home gb1 Condition: Stable gb1 Diagnosis - Lymphangitis gb1 Followup: gb1 - With: Private Physician - When: - Reason: Recheck today's complaints Discharge Instructions: - Discharge Summary Sheet gb1 - Lymphangitis, Adult gb1 Forms: - Medication Reconciliation Form gb1 - Antibiotic Education gb1 - Prescription Opioid Use gb1 - Patient Portal Instructions gb1 - Leadership Thank You Letter gb1 Prescriptions: - Cephalexin 500 mg Oral Capsule - take 1 capsule ORAL route every 12 hours for 10 days; 20 capsule; Refills: 0, gb1 Product Selection Permitted Signatures: Kamilah Up RN RN mb9 Zeina Marcano RN RN cm10 Rani Fatima MD MD gb1 Corrections: (The following items were deleted from the chart) 18:22 18:12 NS IV 0.45 % 500 ml IV at bolus once ordered. gb1 mb9 18:22 18:22 NS IV 0.45 % 500 ml IV at bolus once given. mb9 mb9 18:22 18:22 NS IV 0.45 % 500 ml IV at bolus once ordered. mb9 mb9
[2024-08-08 20:01] VITALS: BP 132/86; TEMP 98; O2SAT 100
== END 2024-08-08 19:46 | disposition home or self-care (01) ==
LOC: ER 17:24
DX: I89.1 Lymphangitis (principal); Z90.11 Acquired absence of right breast and nipple; Z85.3 Personal history of malignant neoplasm of breast
CPT/HCPCS: J7040

== ENCOUNTER 2024-12-15 08:57 | Emergency (ER) | payer OTHER ==
--- OUTSIDE RECORDS SUMMARY | 2024-12-15 09:01 | XMS REPORT | Continuity of Care Document ---
Author Name Unknown Address [address] [facility] [address] [place] [address] [facility] [place] Address [address] [facility] [address] [place] [address] Care Team Providers Care Java Golden Gate Developer Name Role Phone BONITA SHANKAR Primary Care Physician Unav ailEDMAR Martines Attending Clinician UnavailEdmar Florez MD Attending Clinician [phone] Doctor Unassigned, [place] Attending Clinician U navailable [email or web address] Attending Clinician Unavailrio chaidez Radiology Attending Clinician Unavailable RADIOLOGY Attending Clinician Unavailable EDMAR DAN Admitting Clinician Edmar Damian MD Admitting Clinician [phone] [email or web address]_S Admitting Clinician UnavailPAULA Moss Admitting Clinician Unavailable Payers Payer Name Policy Type Policy Number Effective Date Expirati on Date Source [id number] DUAL COMP HMO D SNP [id number] 2022 00:00:00 [employer] MED[employer] DUAL COMPLETE HMO DSNP [id number] 2023 00:00:00 MEDICARE PART A \T\ B [id number] 2008 00:00:00 Allergies, Adverse Reactions, Alerts Allergy Name Allergy Type Status Severity Reaction(s) Onset Date Inactive Date Treating Clinician Comments Source CODEINE DRUG INGREDI Active ITCHING 02-09 00:00: 00 [facility] Codeine Propensi ty to adverse reaction s Active Itching 02-09 00:00: 00 [facility] Social History Social Habit Start Date Stop Date Quantity Comments Source [facility] of Social function 2023-09-21 00:00:00 2023-09-21 00:00:00 [facility] Alcohol intake 2023-09-15 00:00:00 2023-09-15 00:00:00 0 /d [facility] Tobacco use and exposure 2023-08-30 00:00:00 2023-08-30 00:00:00 Smokeless tobacco non-user [facility] Sex Assigned At 1955 00:00:00 1955 00:00:00 [facility] Smoking Status Start Date Stop Date Source Never smoked tobacco [facility] Medications Ordered Medication Name Filled Medication Name Start Date Stop Date Current Medication? Ordering Clinician Indication Dosage Frequency Signature (SIG) Comments Components Source lactated ringers IV infusion 1,000 mL 2022-10 19:00: 00 Yes 1000mL at 50 mL/hr, 1,000 mL, IV Infusion, CONTINUOUS , Starting on Tue09/21/23 at 1300, Until Discontinu ed, Routine, PACU [facility] ondansetron (ZOFRAN (PF)) injection 4 mg 2022-10 18:57: 37 09-21 22:18 :43 No 4mg 4 mg, Slow IV Push, PRN, 1 dose, Starting on Tue09/21/23 at 1257, Until Tue09/21/23 at 1618, Routine, Nausea and Vomiting (N/V), PACU [facility] neomycin-po lymyxin-dex amethasone (MAXITROL) 3.5 mg/g-10,000 unit/g-0.1 % ophthalmic ointment 2022-10 18:56: 00 09-21 19:46 :22 No PRN, Starting on Tue09/21/23 at 1256, Until Tue09/21/23 at 1346, Routine, Intra-op [facility] sodium chloride (NS) injection 2022-10 18:55: 00 09-21 19:46 :22 No PRN, Starting on Tue09/21/23 at 1255, Until Tue09/21/23 at 1346, Routine, Intra-op [facility] dexamethaso ne (DECADRON PHOSPHATE) injection 2022-10 18:54: 00 09-21 19:46 :22 No PRN, Starting on Tue09/21/23 at 1254, Until Tue09/21/23 at 1346, Routine, Intra-op [facility] ceFAZolin (ANCEF) injection 2022-10 18:54: 00 09-21 19:46 :22 No PRN, Starting on Tue09/21/23 at 1254, Until Tue09/21/23 at 1346, JEANNE, [facility] carbachoL (MIOSTAT) 0.01 % intraocular injection 2022-10 18:53: 00 09-21 19:46 :22 No PRN, Starting on Tue09/21/23 at 1253, Until Tue09/21/23 at 1346, Routine, Intra-op [facility] chondroitin sulf-sod hyaluronate (DUOVISC VISCO ELASTIC) intraocular injection 2022-10 18:47: 00 09-21 19:46 :22 No PRN, Starting on Tue09/21/23 at 1247, Until Tue09/21/23 at 1346, Routine, Intra-op [facility] EPINEPHrine 1:1,000 (1 mg/mL) (ADRENALIN) 0.5 mL in balanced salt soln no.1 irrig. (BSS PLUS) 500 mL OR irrigation 2022-10 18:46: 00 09-21 19:46 :22 No PRN, Starting on Tue09/21/23 at 1246, [facility] tetracaine (PONTOCAINE ) 0.5 % ophthalmic drops 2022-10 18:40: 00 09-21 19:46 :22 No PRN, Starting on Tue09/21/23 at 1240, Until Tue09/21/23 at 1346, Routine, Intra-op [facility] water for irrigation irrigation solution 2022-10 18:34: 00 09-21 19:46 :22 No PRN, Starting on Tue09/21/23 at 1234, Until Tue09/21/23 at 1346, Routine, Intra-op [facility] Hyaluronida se, Human Recomb. (HYLENEX) injection 2022-10 18:33: 00 09-21 19:46 :22 No PRN, Starting on Tue09/21/23 at 1233, Until Tue09/21/23 at 1346, Routine, Intra-op [facility] eye block syringe 11 mL 2022-10 18:32: 00 09-21 19:46 :22 No PRN, Starting on Tue09/21/23 at 1232, Until Tue09/21/23 at 1346, Intra-op [facility] cyclopent 1%-tropic 1%-phenyl 2.5%-ketor 0.5% (MYDRIATIC #5) ophthalmic solution syringe 0.5 mL 2022-10 18:00: 00 09-21 17:56 :00 No .5mL 0.5 mL, Left Eye, ONCE, 1 dose, On Tue09/21/23 at 1200, Routine, DSU Pre-op [facility] lactated ringers IV infusion 1,000 mL 2022-10 18:00: 00 09-21 17:56 :00 No 1000mL at 42 mL/hr, 1,000 mL, IV Infusion, ONCE, 1 dose, On Tue09/21/23 at 1200, Routine, DSU Pre-op [facility] omeprazole 20 mg capsule 2022-10 14:18: 36 Yes 20mg Take 1 capsule by mouth in the morning. [facility] melatonin 3 mg tablet 2022-10 14:18: 36 Yes 3mg Take 1 tablet by mouth at bedtime. [facility] melatonin 3 mg tablet 2022-10 13:46: 22 Yes 3mg Take 1 tablet by mouth at bedtime. [facility] omeprazole 20 mg capsule 2022-10 13:02: 03 Yes 20mg Take 1 capsule by mouth in the morning. [facility] sodium chloride (NS) injection 2022-10 16:23: 00 09-07 16:28 :55 No PRN, Starting on Tue09/07/23 at 1023, Until Tue09/07/23 at 1028, Routine, Intra-op [facility] neomycin-po lymyxin-dex amethasone (MAXITROL) 3.5 mg/g-10,000 unit/g-0.1 % ophthalmic ointment 2022-10 16:23: 00 09-07 16:28 :55 No PRN, Starting on Tue09/07/23 at 1023, Until Tue09/07/23 at 1028, Routine, Intra-op [facility] dexamethaso ne (DECADRON PHOSPHATE) injection 2022-10 16:23: 00 09-07 16:28 :55 No PRN, Starting on Tue09/07/23 at 1023, Until Tue09/07/23 at 1028, Routine, Intra-op [facility] ceFAZolin (ANCEF) injection 2022-10 16:23: 00 09-07 16:28 :55 No PRN, Starting on Tue09/07/23 at 1023, Until Tue09/07/23 at 1028, JEANNE, Intra-op [facility] carbachoL (MIOSTAT) 0.01 % intraocular injection 2022-10 16:22: 00 09-07 16:28 :54 No PRN, Starting on Tue09/07/23 at 1022, Until Tue09/07/23 at 1028, Routine, Intra-op [facility] EPINEPHrine 1:1,000 (1 mg/mL) (ADRENALIN) injection 2022-10 16:21: 00 09-07 16:28 :55 No PRN, Starting on Tue09/07/23 at 1021, Until Tue09/07/23 at 1028, Routine, Intra-op [facility] chondroitin sulf-sod hyaluronate (DUOVISC VISCO ELASTIC) intraocular injection 2022-10 16:12: 00 09-07 16:28 :55 No PRN, Starting on Tue09/07/23 at 1012, Until Tue09/07/23 at 1028, Routine, Intra-op [facility] balanced salt irrig soln comb1 (BSS PLUS) ophthalmic solution 500 mL bag 2022-10 16:10: 00 09-07 16:28 :54 No PRN, Starting on Tue09/07/23 at 1010, Until Tue09/07/23 at 1028, Routine, Intra-op [facility] water for irrigation irrigation solution 2022-10 16:02: 00 09-07 16:28 :55 No PRN, Starting on Tue09/07/23 at 1002, Until Tue09/07/23 at 1028, Routine, Intra-op [facility] Hyaluronida se, Human Recomb. (HYLENEX) injection 2022-10 16:00: 00 09-07 16:28 :54 No PRN, Starting on Tue09/07/23 at 1000, Until Tue09/07/23 at 1028, Routine, Intra-op [facility] eye block syringe 11 mL 2022-10 16:00: 00 09-07 16:28 :54 No PRN, Starting on Tue09/07/23 at 1000, Until Tue09/07/23 at 1028, Intra-op [facility] lactated ringers IV infusion 1,000 mL 2022-10 15:00: 00 09-07 15:10 :00 No 1000mL at 42 mL/hr, 1,000 mL, IV Infusion, ONCE, 1 dose, On Tue09/07/23 at 0900, Routine, DSU Pre-op [facility] cyclopent 1%-tropic 1%-phenyl 2.5%-ketor 0.5% (MYDRIATIC #5) ophthalmic solution syringe 0.5 mL 2022-10 15:00: 00 09-07 15:10 :00 No .5mL 0.5 mL, Right Eye, ONCE, 1 dose, On Tue09/07/23 at 0900, Routine, DSU Pre-op [facility] omeprazole 20 mg capsule 2022-10 11:01: 08 Yes 20mg Take 1 capsule by mouth in the morning. [facility] Vital Signs Vital Name Observation Time Observation Value Comments S ource Heart rate 2023-09-21 19:20:00 73 /min [facility] Oxygen saturation in Arterial blood by Pulse oximetry 2023-09-21 19:20:00 94 /min [facility] Systolic blood pressure 2023-09-21 19:15:00 124 mm[Hg] [facility] hospital Diastolic blood pressure 2023-09-21 19:15:00 51 mm[Hg] [facility] acute hospital Respiratory rate 2023-09-21 19:15:00 18 /min [facility] Body temperature 2023-09-21 19:00:00 36.39 Zoila [facility] Body height 2023-09-15 15:45:00 157.5 cm [facility] Body weight 2023-09-15 15:45:00 77.111 kg [facility] BMI 2023-09-15 15:45:00 31.09 kg/m2 [facility] Systolic blood pressure 2023-09-21 19:10:00 138 mm[Hg] [facility] acute hospital Diastolic blood pressure 2023-09-21 19:10:00 73 mm[Hg] [facility] acute hospital Heart rate 2023-09-21 19:10:00 71 /min [facility] Respiratory rate 2023-09-21 19:10:00 16 /min [facility] Oxygen saturation in Arterial blood by Pulse oximetry 2023-09-21 19:10:00 95 /min [facility] hospital Body temperature 2023-09-21 19:00:00 36.39 Zoila [facility] Body height 2023-09-15 15:45:00 157.5 cm [facility] Body weight 2023-09-15 15:45:00 77.111 kg [facility] BMI 2023-09-15 15:45:00 31.09 kg/m2 [facility] Systolic blood pressure 2023-09-07 16:45:00 122 mm[Hg] General acute hospital Diastolic blood pressure 2023-09-07 16:45:00 81 mm[Hg] General acute hospital Heart rate 2023-09-07 16:45:00 64 /min [facility] Respiratory rate 2023-09-07 16:45:00 16 /min [facility] Oxygen saturation in Arterial blood by Pulse oximetry 2023-09-07 16:45:00 96 /min [facility] acute hospital Body temperature 2023-09-07 16:29:00 36.39 Zoila [facility] Body weight 2023-09-07 15:04:00 80.74 kg [facility] BMI 2023-09-07 15:04:00 32.56 kg/m2 [facility] Body height 2023-08-30 22:00:00 157.5 cm [facility] Heart rate 2023-09-07 15:04:00 64 /min [facility] Body temperature 2023-09-07 15:04:00 36.39 Zoila [facility] Respiratory rate 2023-09-07 15:04:00 18 /min [facility] Body weight 2023-09-07 15:04:00 80.74 kg [facility] BMI 2023-09-07 15:04:00 32.56 kg/m2 [facility] Oxygen saturation in Arterial blood by Pulse oximetry 2023-09-07 15:04:00 97 /min [facility] acute hospital Body height 2023-08-30 22:00:00 157.5 cm [facility] Procedures Procedure Date / Time Performed Performing Clinician Source PHACOEMULSIFICATION OF CATARACT WITH INTRAOCULAR LENS IMPLANT 2023-09-21 18:21:00 Edmar Dan [facility] DAY SURGERY - ADC 2023-09-21 06:01:00 Doctor Unassigned, Grayling [facility] PHACOEMULSIFICATION OF CATARACT WITH INTRAOCULAR LENS IMPLANT 2023-09-07 15:48:00 Edmar Dan [facility] DAY SURGERY - ADC 2023-09-07 06:01:00 Doctor Unassigned, [place]ling [facility] Encounters Start Date/Time End Date/Time Encounter Type Admission Type Attending [facility] Care Department Encounter ID Source 2024-03-07 14:15:17 2024-03-07 14:15:17 Outpatient [facility] [id number] Dante Fortune 2023-09-21 11:45:00 2023-09-21 13:20:00 Outpatient R EDMAR DAN [facility] OPH [id number] [facility] 2023-09-21 11:45:00 2023-09-21 13:20:00 Hospital Encounter FlorencioEdmar Rio [facility] 1.2.840.114 [id number] [id number] [facility] 2023-09-21 12:36:00 2023-09-21 13:10:00 Surgery Edmar Dan [facility] [id number] [id number] [id number] [facility] 2023-09-07 08:52:00 2023-09-07 11:01:00 Hospital Encounter Florencio Edmar Rio [facility] [id number] [id number] [id number] [id number] [facility] 2023-09-07 08:52:00 2023-09-07 11:01:00 Outpatient R EDMAR DAN [facility] OPH [id number] [facility] 2023-09-07 09:32:00 2023-09-07 10:06:00 Surgery Edmar Dan [facility] [id number] 350.1.13.10 [id number] [facility] 2023-09-07 00:00:00 2023-09-07 00:00:00 Orders Only Doctor Unassigned, Grayling [facility] [id number] 350.1.13.10 [id number] [facility] 2023-07-29 00:00:00 2023-07-29 00:00:00 Outpatient GC_GCBZW_Ka diyala_S [facility] [id number] [facility] 2019-12-06 13:42:00 2019-12-06 23:59:00 Hospital Encounter Radiology [facility] [id number] [id number] [id number] 2019-12-06 13:41:03 2019-12-06 13:41:00 Outpatient R RADIOLOGY [facility] [id number] [facility] 2019-12-06 13:40:00 2019-12-06 13:41:00 Hospital Encounter Radiology [facility] [id number] 350.1.13.10 [id number] [id number]
[2024-12-15] MEDS ORDERED: KETOROLAC 30 MG/ML INJ ONE (09:19)
[2024-12-15] MEDS ORDERED: NA CHLORIDE 0.9% 250 ML ONE (09:19)
[2024-12-15] MEDS ORDERED: NA CHLORIDE 0.9% 500 ML ONE (09:19)
[2024-12-15] MEDS ORDERED: VANCOMYCIN 1 GM/VIAL ONE (09:19)
--- NOTE | 2024-12-15 09:46 | RAD REPORT ---
EXAMINATION: US RIGHT UPPER EXTREMITY VENOUS DOPPLER CLINICAL INDICATION: SWELLING RIGHT TECHNIQUE: Complete bilateral duplex sonography of the RIGHT upper extremity veins was performed. The examination included compression for vein patency, color Doppler imaging and flow augmentation in response to distal compression of the internal jugular, brachiocephalic, subclavian, axillary, brachi al, radial, ulnar, cephalic and basilic veins. COMPARISON: No prior exam. FINDINGS: Duplex sonography testing of the veins of the RIGHT upper extremity was performed. Color flow imaging shows all veins to be compressible with [id number] color filling. Pulsatile and phasic flow is present within all upper extremity deep and superficial veins examined. IMPRESSION: There is no deep vein or superficial vein thrombosis.
[2024-12-15 09:54] LABS: Absolute Lymphocytes (CBC) 0.7 K/uL (0.7-4.9); Absolute Monocytes 0.3 K/uL (0.1-1.3); Absolute Neutrophil 8.3 K/uL (1.8-8.0); Basophils % 0.2 % (0-1.3); Eosinophils % 0.3 % (0-4.4); Hematocrit 46.9 % (36.0-45.0); Hemoglobin 15.9 g/dL (12.0-15.0); Lymphocytes % 7.1 % (15.3-44.8); MCHC 33.9 g/dL (32.0-36.0); MCV 91.5 fL (80-100); MPV 7.4 fL (7.6-11.3); Monocytes % 3.2 % (3.3-12.3); Neutrophils % 89.2 % (41.7-73.7); Nucleated Red Blood Cells % 0.1 % (0-0); Platelets 235 thou/uL (152-406); RBC Red Blood Cell Count 5.12 M/uL (3.86-4.86); Red Cell Distribution Width 14.1 % (12.1-15.2)
[2024-12-15 10:05] LABS: PT Prothrombin Time 12.2 SECONDS (10-13.0); PTT, Activated Partial Thromb 30.6 SECONDS (27.2-37.4); Protime INR 1.07
[2024-12-15 10:09] LABS: Anion Gap 9.5 mEq/L (5.0-15.0); Globulin 4.2 g/dL (2.3-3.5); Potassium 3.5 mEq/L (3.5-5.1); Protein, Total 8.2 g/dL (6.4-8.2)
[2024-12-15 10:24] LABS: Blood Morphology Comment NOT SEEN (NOT SEEN); Platelet Estimate ADEQ; White Blood Cell Scan OK (OK)
--- NOTE | 2024-12-15 10:35 | EDPHYS ---
Physician Documentation [facility] Name: Melisa Daugherty Age: 69 yrs Sex: Female : 1955 Arrival Date: 12/15/2024 Time: 08:57 Bed 13 Private MD: ED Physician Uli Gomez HPI: 12/15 09:05 This 69 yrs old Female presents to ER via Unassigned with complaints of Arm Pain, Back kb Pain, Fever. 09:05 Pt is a 69 year old female who presents for fever, redness and swelling to right upper kb arm. States she did some yard work and believes that is what caused the infection. States she has lymphedema in that arm due to previous cancer. Denies shortness of breath, chest pain, fever. Pt states she has had this several times in the past, normally gets a dose of IV antibiotics and goes home with oral antibiotics. Reports keflex that was prescribed in August worked well. . Historical: - Allergies: 09:16 Codeine; hb - PMHx: 09:16 Breast Cancer 2005; High Cholesterol; Right arm lymphedema; hb - PSHx: 09:16 Lymph nodes removed from right arm due to breast cancer; right mastectomy; hb - Immunization history:: Adult Immunizations up to date. - Infectious Disease History:: Denies. - Social history:: Smoking status: Patient denies any tobacco usage or history of. ROS: 09:05 Constitutional: As per HPI kb Exam: 09:05 Constitutional: This is a well developed, well nourished patient who is awake, alert, kb and in no acute distress. Head/Face: Normocephalic, atraumatic. ENT: Moist Mucous membranes Cardiovascular: Regular rate Respiratory: Respirations even and unlabored. No increased work of breathing. Talking in full sentences Abdomen/GI: Soft, non-tender. No distention MS/ Extremity: Pulses equal, no cyanosis. Neurovascular intact. Full, normal range of motion. Neuro: Awake and alert, GCS 15, oriented to person, place, time, and situation. 09:05 Skin: cellulitis, that is mild, on the right arm, Vital Signs: 09:05 BP 122 / 71; Pulse 96; Resp 16; Temp 99.1(O); Pulse Ox 97% on R/A; Weight 70.31 kg; hb Height 5 ft. 2 in. ; Pain 5/10; 10:53 BP 126 / 64; Pulse 81; Resp 18; Temp 98.4; Pulse Ox 98% on R/A; ph 09:05 Body Mass Index 28.35 (70.31 kg, 157.48 cm) hb 09:05 Pain Scale: Adult hb MDM: 09:03 Medical Screening Exam initiated kb 09:07 Data reviewed: vital signs, nurses notes. kb 10:32 Differential diagnosis: cellulitis, lymphedema. Consideration of Admission/Observation kb Escalation of care including admission/observation considered. admission considered for cellulitis, but pt reports oral antibiotics normally work well, WBC and lactate wnl. Counseling: I had a detailed discussion with the patient and/or guardian regarding the historical points, exam findings, and any diagnostic results supporting the discharge/admit diagnosis, lab results, radiology results, the need for outpatient follow up, a family practitioner, to return to the emergency department if symptoms worsen or persist or if there are any questions or concerns that arise at home. 12/15 09:11 Order name: Blood Culture Adult (2) kb 12/15 09:11 Order name: CBC with Diff; Complete Time: 10:26 kb 12/15 09:11 Order name: CMP; Complete Time: 10:26 kb 12/15 09:11 Order name: Lactate w/ 2H reflex if indic.; Complete Time: 10:26 kb 12/15 09:11 Order name: Protime (+inr); Complete Time: 10:26 kb 12/15 09:11 Order name: Ptt, Activated; Complete Time: 10:26 kb 12/15 10:24 Order name: CBC Smear Scan; Complete Time: 10:26 EDMS 12/15 09:09 Order name: US Extremity Venous Unilateral Ltd kb 12/15 09:12 Order name: UPPER EXTREMITY VENOUS UNILATE; Complete Time: 09:47 EDMS 12/15 09:11 Order name: IV Saline Lock - Large Bore; Complete Time: 09:50 kb 12/15 09:11 Order name: Labs collected and sent; Complete Time: 09:50 kb 12/15 09:11 Order name: O2 Per Protocol; Complete Time: 09:13 kb 12/15 09:11 Order name: O2 Sat Monitoring; Complete Time: 09:13 kb 12/15 09:11 Order name: Vital Signs; Complete Time: 09:13 kb Administered Medications: 09:50 Drug: NS 0.9% IV 500 ml 500 ml IV at 1 bolus once; to be given as a bolus over 30 ph minutes Volume: 500 ml; Route: IV; Rate: 1 bolus; Site: left antecubital; 10:20 Follow up: Response: No adverse reaction; IV Status: Completed infusion; IV Intake: ph 500ml 09:50 Drug: Ketorolac IVP 15 mg IVP once Route: IVP; Site: left antecubital; ph 09:50 Follow up: Response: No adverse reaction ph 09:50 Drug: vancoMYCIN IVPB 1 grams IVPB once over 2 hrs Route: IVPB; Infused Over: 2 hrs; ph Site: left antecubital; 10:53 Follow up: Response: No adverse reaction; IV Status: Completed infusion; IV Intake: ph 250ml Disposition: 11:06 Co-signature as Attending Physician, Uli Gomez MD I reviewed the patient's care rt provided by the Advanced Practice Provider and agree with the diagnosis and treatment plan. Chart complete. Chart complete. Disposition Summary: 12/15/24 10:34 Discharge Ordered Notes: Location: Home Condition: Stable kb Diagnosis - Cellulitis of right upper limb kb Followup: kb - With: Emergency Department - When: As needed - Reason: Worsening of condition Followup: kb - With: Private Physician - When: 2 - 3 days - Reason: Recheck today's complaints, Continuance of care, Re-evaluation by your physician Discharge Instructions: - Discharge Summary Sheet kb - Cellulitis, Adult, [id number] kb Forms: - Medication Reconciliation Form kb - Antibiotic Education kb - Prescription Opioid Use kb - Patient Portal Instructions kb - Leadership Thank You Letter kb Prescriptions: - Cephalexin 500 mg Oral Capsule - take 1 capsule ORAL route every 8 hours for 10 days; 30 capsule; Refills: 0, kb Product Selection Permitted Signatures: Dispatcher [employer] Viviana De León, MITRA NAIR-Aav Field RN RN Samina Sharpe, RN RN Uli Joseph MD MD rt Corrections: (The following items were deleted from the chart) 09:17 09:05 Pt is a 69 year old female who presents for fever, redness and swelling to right kb upper arm. States she has lymphedema in that arm due to previous cancer. Denies shortness of breath, chest pain, fever. . kb
--- NOTE | 2024-12-15 10:35 | ER ---
Nurse's Notes [facility] Name: Melisa Daugherty Age: 69 yrs Sex: Female : 1955 Arrival Date: 12/15/2024 Time: 08:57 Bed 13 Private MD: Diagnosis: Cellulitis of right upper limb Presentation: 12/15 09:05 Chief complaint: Right arm swelling and redness x 2 days. hb 09:05 Method Of Arrival: Ambulatory hb 09:05 Coronavirus screen: At this time, the client does not indicate any symptoms associated hb with coronavirus-19. Ebola Screen: No symptoms or risks identified at this time. Initial Sepsis Screen: Does the patient meet any 2 criteria? No. Patient's initial sepsis screen is negative. Does the patient have a suspected source of infection? No. Patient's initial sepsis screen is negative. Risk Assessment: Do you want to hurt yourself or someone else? Patient reports no desire to harm self or others. Onset of symptoms was December 14, 2024. 09:05 Acuity: MACEY 3 hb Historical: - Allergies: 09:16 Codeine; hb - PMHx: 09:16 Breast Cancer 2005; High Cholesterol; Right arm lymphedema; hb - PSHx: 09:16 Lymph nodes removed from right arm due to breast cancer; right mastectomy; hb - Immunization history:: Adult Immunizations up to date. - Infectious Disease History:: Denies. - Social history:: Smoking status: Patient denies any tobacco usage or history of. Screenin:16 [facility] ED Fall Risk Assessment (Adult) History of falling in the last 3 months, hb including since admission No falls in past 3 months (0 pts) Confusion or Disorientation No (0 pts) Intoxicated or Sedated No (0 pts) Impaired Gait No (0 pts) Mobility Assist Device Used No (0 pt) Altered Elimination No (0 pt) Score/Fall Risk Level 0 - 2 = Low Risk Oriented to surroundings, Maintained a safe environment, Educated pt \T\ family on fall prevention, incl call for assistance when getting out of bed. Abuse screen: Denies threats or abuse. Denies injuries from another. Nutritional screening: No deficits noted. Tuberculosis screening: No symptoms or risk factors identified. Assessment: 09:48 General: Appears in no apparent distress. comfortable, Behavior is calm, cooperative, ph Reports fever for 0-12 hours. Pain: Complains of pain in right arm Pain radiates to back. Neuro: Level of Consciousness is awake, alert, obeys commands, Oriented to person, place, time, situation. Cardiovascular: Capillary refill < 3 seconds in bilateral fingers Patient's skin is warm and dry. Respiratory: Airway is patent Respiratory effort is even, unlabored, Respiratory pattern is regular, symmetrical. GI: No signs and/or symptoms were reported involving the gastrointestinal system. Derm: Skin is pink, warm \T\ dry. Musculoskeletal: Swelling present in right arm redness noted in RU arm. Vital Signs: 09:05 BP 122 / 71; Pulse 96; Resp 16; Temp 99.1(O); Pulse Ox 97% on R/A; Weight 70.31 kg; hb Height 5 ft. 2 in. ; Pain 5/10; 10:53 BP 126 / 64; Pulse 81; Resp 18; Temp 98.4; Pulse Ox 98% on R/A; ph 09:05 Body Mass Index 28.35 (70.31 kg, 157.48 cm) hb 09:05 Pain Scale: Adult hb ED Course: 09:01 Patient arrived in ED. sj2 09:03 [facility] kb 09:03 Uli Gomez MD is Attending Physician. kb 09:12 Ava Ly, BLANCA is Primary Nurse. ph 09:16 Triage completed. hb 09:16 Arm band placed on. hb 09:16 Patient has correct armband on for positive identification. Bed in low position. Call hb light in reach. Provided Education on: use of call light, tests, result times. Door closed. Warm blanket given. PO fluids given. Head of bed lowered. 09:30 First set of blood cultures drawn by me. Missed attempt(s): 20 gauge in left ph antecubital area. Bleeding controlled, band aid applied, catheter tip intact. 09:35 Initial lab(s) drawn, by me, sent to lab. Second set of blood cultures drawn by me. ph Inserted saline lock: 22 gauge in left antecubital area, using aseptic technique. Blood collected. Flushed with 10 mL NS. 09:42 UPPER EXTREMITY VENOUS UNILATE In Process Unspecified. EDMS 09:50 Blood Culture Adult (2) Sent. ph 09:50 CBC with Diff Sent. ph 09:50 CMP Sent. ph 09:50 Lactate w/ 2H reflex if indic. Sent. ph 09:50 Protime (+inr) Sent. ph 09:50 Ptt, Activated Sent. ph 10:54 No provider procedures requiring assistance completed. IV discontinued, intact, ph bleeding controlled, No redness/swelling at site. Pressure dressing applied. Administered Medications: 09:50 Drug: NS 0.9% IV 500 ml 500 ml IV at 1 bolus once; to be given as a bolus over 30 ph minutes Volume: 500 ml; Route: IV; Rate: 1 bolus; Site: left antecubital; 10:20 Follow up: Response: No adverse reaction; IV Status: Completed infusion; IV Intake: ph 500ml 09:50 Drug: Ketorolac IVP 15 mg IVP once Route: IVP; Site: left antecubital; ph 09:50 Follow up: Response: No adverse reaction ph 09:50 Drug: vancoMYCIN IVPB 1 grams IVPB once over 2 hrs Route: IVPB; Infused Over: 2 hrs; ph Site: left antecubital; 10:53 Follow up: Response: No adverse reaction; IV Status: Completed infusion; IV Intake: ph 250ml Medication: 10:54 VIS not applicable for this client. ph Intake: 10:20 IV: 500ml; Total: 500ml. ph 10:53 IV: 250ml; Total: 750ml. ph Outcome: 10:34 Discharge ordered by . kb 10:54 Discharged to home ambulatory, ph 10:54 Condition: good 10:54 Discharge instructions given to patient, Instructed on discharge instructions, follow up and referral plans. medication usage, Demonstrated understanding of instructions, follow-up care, medications, Prescriptions given X 1, 10:57 Patient left the ED. ph Signatures: Dispatcher [employer] EDUT Viviana Woods, Ava Ling RN RN Samina Javier, BLANCA RN Claudine Arndt2
[2024-12-15 11:03] VITALS: BP 126/64; TEMP 98.4; O2SAT 98
== END 2024-12-15 10:57 | disposition home or self-care (01) ==
LOC: ER 08:57
DX: L03.113 Cellulitis of right upper limb (principal); Z90.11 Acquired absence of right breast and nipple; Z85.3 Personal history of malignant neoplasm of breast
CPT/HCPCS: 96365; 87040 ×2; 85025; 36415; 85610; 83605; 85730; 80053; 93971; 96375; 99284; J3370; J7050; J7040